=== PATIENT | female | born 1945 | race Caucasian/White ===

== ENCOUNTER 2024-06-28 12:13 | Inpatient (IN) ==
[2024-06-28 13:00] LABS: Albumin Level 3.7 gm/dl (3.4-5.0); Bilirubin,Total 0.4 mg/dl (0.2-1.0); Calcium 9.4 mg/dl (8.6-10.3); Potassium 4.3 mmol/L (3.5-5.1)
[2024-06-28 13:06] LABS: Albumin Globulin Ratio 1.2 (0.9-2); Creatinine Clr Calc Pharmacy 52.5 ml/min; Globulin 3.1 gm/dl (2.5-4.0); Total Protein 6.8 gm/dl (6.0-8.3)
[2024-06-28 13:18] LABS: Partial Thromboplastin Ratio 0.9; Partial Thromboplastin Time 24 Seconds (21-31); Prothrombin Time 10.4 Seconds (9.0-12.0)
--- NOTE | 2024-06-28 13:24 | XRay Report ---
XR chest 1V not portable CLINICAL HISTORY: Chest pain, nonspecific COMPARISON STUDY: Chest radiograph December 25, 2021. FINDINGS: Lung volumes are normal. Lungs are clear. There is no pneumothorax or pleural effusion. Car diomegaly is unchanged. Mediastinal contours are normal. There is no evidence for pulmonary edema. IMPRESSION: No acute cardiopulmonary findings. No change in appearance of the chest. ACT 112: Negative or not required by law. Electronically signed by: Cesar Land M.D. 06/28/2024 1:23 PM
[2024-06-28 13:27] LABS: D Dimer 1580 ug/L FEU (0-500); Troponin I High Sensitivity 1070.6 pg/ml (0-14)
[2024-06-28 13:29] LABS: Basophils # (auto) 0.03 K/uL (0.00-0.20); Basophils % (auto) 0.4 %; Eosinophils # (auto) 0.18 K/uL (0.00-0.50); Eosinophils % (auto) 2.7 %; Hematocrit (blood only) 43.1 % (37.0-47.0); Hemoglobin 14.4 g/dl (12.0-16.0); Immature Granulocytes # (auto) 0.02 K/uL (0.01-0.20); Immature Granulocytes % (auto) 0.3 %; Lymphocytes # (auto) 1.14 K/uL (1.20-3.40); Lymphocytes % (auto) 17.1 %; Mean Corpuscular Hemoglobin 30.8 pg (25.0-34.0); Mean Corpuscular Hgb Conc 33.4 g/dL (32.0-36.0); Mean Corpuscular Volume 92.3 fL (80.0-100.0); Mean Platelet Volume 9.5 fL (9.4-12.4); Monocytes # (auto) 0.27 K/uL (0.11-0.59); Neutrophils # (auto) 5.03 K/uL (1.40-6.50); Neutrophils % (auto) 75.5 %; Platelet Count 245 K/uL (130-400); RDW Coefficient of Variation 12.5 % (11.5-14.5); RDW Standard Deviation 42.3 fL (36.4-46.3); Red Blood Count 4.67 M/uL (4.20-5.40); White Blood Count 6.67 K/ul (4.8-10.8)
--- NOTE | 2024-06-28 13:32 | Emergency Department Note ---
Impression & Plan Acute non-ST elevation myocardial infarction (NSTEMI), Elevated troponin, Hypertensive urgency ED Provider Note NAME: PER RUEDA AGE: 78 SEX: F : 1945 ARRIVES VIA: Walk-In INFORMANT: Patient, Friend at bedside ED PROVIDER(S): Abiodun Porter MD CHIEF COMPLAINT: Chest pain, shortness of breath MEDICAL DECISION MAKING: Patient presented due to concern for chest pain and shortness of breath. I was notified by the charge nurse of her abnormal blood work and probably saw the patient that she had an elevated troponin and D-dimer. Upon evaluation no chest pain. The patient does have an elevated D-dimer of 1580 and troponin of 1000. No priors for comparison. LFTs unremarkable. BSG 111 but nonfasting and not DKA with normal white count H&H and platelet count. I did call charge nurse ordered promptly have the patient undergo CAT scan imaging of the chest. Patient was advised to hit her call mondragon if she developed any recurrence of chest pain. Patient did have recurrence of chest pain. Slight depressions in 1 and aVL patient was ordered aspirin and nitro along with 2 mg of IV morphine. Quick review of the patient CT angiography did not show any main lobar PE. Patient was ordered heparin bolus and drip. CT angiography negative pulmonary nodules noted. Inform the patient of these findings and may consider follow-up as an outpatient repeat CAT scan. I did speak with the on-call cardiology service who agreed with the plan of care. Subsequent reassessment the patient had improvement and resolution of her chest pain with treatment. I did speak with Dr. Cuevas and the patient was admitted to the medicine service. Critical Care: I have personally spent 45 minutes of critical care time in direct management of this patient. This includes bedside care, interpretation of diagnostic studies, and testing, discussion with consultants, patient, and family members, and other require inpatient management activities. This 45 minutes is in excess of all separately billable procedures. Discussion w/ other healthcare providers: Dr. Dumont cardiology Dr. Cuevas inpatient medicine service Prior /Outside records reviewed: None Differential diagnosis: Cardiac ischemia, aortic dissection, pulmonary embolism, pneumothorax, pneumonia, pericarditis, myocarditis, GERD, cholecystitis, pancreatitis, musculoskeletal, as well as other pathologies were considered. Diagnostics, as interpreted by me: ECG: Normal sinus rhythm, rate of 77, normal intervals, normal axis no ST elevations. Repeat EKG interpreted myself Normal sinus rhythm, rate of 82, normal intervals, normal axis no ST elevations, slight depressions in [address] aVL. No obvious ST elevations. Cardiac monitoring: An order was placed for continuous cardiac monitoring. The monitor shows a rate of 75 with sinus rhythm. Patient was placed on pulse oximetry Medical decision rules: Heart score, Wells score Imaging studies: I informally interpreted the patient's Chest x-ray does not show obvious pneumonia or pneumothorax with formal report to follow. HPI:Patient presents due to concern for chest pains. The patient states the chest pain has been ongoing since last week. She states that has been intermittent but was more constant over the weekend and is primarily exertional in nature. The patient describes it as a squeezing front and back like an elephant is on her chest. 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 Patient denies any recent travel or known sick contacts. No leg swelling or calf pain. Patient denies any prior history of heart disease. The patient states that she typically goes to some sort of fitness class twice a week and when she went on she typically has to park at the [employer] and walk up to the [employer] building and states that she had pain and shortness of breath at that time. Patient denies any falls or trauma. No upper or lower respiratory symptoms. Patient has no active chest pain at this time. Patient's chest pain is centralized front and back. Nonradiating. The patient denies any associated nausea vomiting or diaphoresis. PAST MEDICAL HISTORY: See Below PAST SURGICAL HISTORY: See Below SOCIAL HISTORY: See Below HOME MEDICATIONS: See Below ALLERGIES: See Below VITALS: See Below PHYSICAL EXAMINATION: GENERAL: NAD, non-toxic. EYE EXAM: Normal conjunctiva. PERRL, no anisocoria and EOM's grossly intact w/o pain. OROPHARYNX: Moist mucus membranes, grossly normal dentition. NECK: Trachea midline, no stridor. Supple, no nuchal rigidity, no adenopathy, non-tender. No signs of meningismus. FROM of the neck with good chin to chest and neck extension. LUNGS: Clear to auscultation. Normal chest wall mechanics. HEART: NSR, no MRG. ABDOMEN: Abdomen soft, non-tender, no masses, no rebound or guarding. BACK: No CVA TTP. SKIN: No rashes and no bruising. UPPER EXTREMITIES: Upper extremities are grossly normal. LOWER EXTREMITIES: Grossly normal, no edema. Negative Homans' sign bilaterally. NEURO EXAM: A&O x3, cranial nerves II-XII grossly intact, normal speech, moves all 4 extremities. Past Med/Surg History Problem List (Updated 06/28/24 @ 18:58 by Abiodun Porter MD) Acute non-ST elevation myocardial infarction (NSTEMI) (Acute) Hypertensive urgency (Acute) Unstable angina Elevated troponin (Acute) Social History Smoking Status: Never smoker Hx Alcohol Use: Yes Hx Substance Use: No Preferred Language: Marshallese Communication Ability: Effective Marketing Researcher Required: No Beliefs That Will Affect Care: None Current Living Situation: Alone Other Information That Helps Us Care for You: No Feels Safe at Home: Yes Safety Concerns: Feels Safe At This Time Assistive Devices: Denture - Upper, Denture - Lower and Glasses Allergies Allergies Allergy/AdvReac Type Severity Reaction Status Date / Time No Known Allergies Allergy Unverified 06/28/24 13:37 Home Meds Home Medications Medication Instructions Recorded Confirmed lisinopril 20 mg tablet 20 mg PO HS 06/28/24 06/28/24 Results & Data (ED) Vital Signs Vital Signs - 24 hr 06/28/24 12:20 06/28/24 13:34 06/28/24 14:14 Temperature 36.8 C Temperature Source Temporal Artery Scan Pulse Rate 89 76 Pulse Rate [Left Finger] 75 Respiratory Rate 20 16 Respiratory Effort / Characteristics Non-Labored Spontaneous Respiratory Depth Normal Blood Pressure 181/105 H Blood Pressure [Right Arm] 205/98 H Blood Pressure Mean 130 Blood Pressure Mean [Right Arm] 133 Pulse Oximetry 96 98 Oxygen Delivery Method Room Air Sepsis Recent Fever Within 48 Hours No Sepsis New/Unexplained Change in Mental Status No Sepsis Action Taken by Nursing No Action Required 06/28/24 14:30 Temperature Temperature Source Pulse Rate 75 Pulse Rate [Left Finger] Respiratory Rate 18 Respiratory Effort / Characteristics Respiratory Depth Blood Pressure 206/94 H Blood Pressure [Right Arm] Blood Pressure Mean 118 Blood Pressure Mean [Right Arm] Pulse Oximetry 92 Oxygen Delivery Method Sepsis Recent Fever Within 48 Hours Sepsis New/Unexplained Change in Mental Status Sepsis Action Taken by Usp Medications Current Medication List: was personally reviewed by me Laboratory Data Attestation: I reviewed the patient's lab results. 06/28/24 12:31 06/28/24 12:31 Lab Results 06/28/24 Range/Units 12:31 WBC 6.67 (4.8-10.8) K/ul RBC 4.67 (4.20-5.40) M/uL Hgb 14.4 (12.0-16.0) g/dl Hct 43.1 (37.0-47.0) % MCV 92.3 (80.0-100.0) fL MCH 30.8 (25.0-34.0) pg MCHC 33.4 (32.0-36.0) g/dL RDW Std Deviation 42.3 (36.4-46.3) fL RDW Coeff of Deirdre 12.5 (11.5-14.5) % Plt Count 245 (130-400) K/uL MPV 9.5 (9.4-12.4) fL Immature Gran % (Auto) 0.3 % Neut % (Auto) 75.5 % Lymph % (Auto) 17.1 % [place] % (Auto) 4.0 % Eos % (Auto) 2.7 % Baso % (Auto) 0.4 % Neut # (Auto) 5.03 (1.40-6.50) K/uL Lymph # (Auto) 1.14 L (1.20-3.40) K/uL [place] # (Auto) 0.27 (0.11-0.59) K/uL Eos # (Auto) 0.18 (0.00-0.50) K/uL Baso # (Auto) 0.03 (0.00-0.20) K/uL Immature Gran # (Auto) 0.02 (0.01-0.20) K/uL PT 10.4 (9.0-12.0) Seconds INR 1.0 (0.9-1.1) APTT 24 (21-31) Seconds PTT Ratio 0.9 D-Dimer 1580 H* (0-500) ug/L FEU Sodium 138 (136-145) mmol/L Potassium 4.3 (3.5-5.1) mmol/L Chloride 103 (98-107) mmol/L Carbon Dioxide 28 (21-32) mmol/L Anion Gap 7 (3-11) BUN 18 (6-23) mg/dl Creatinine 0.75 (0.6-1.2) mg/dl Est Cr Clr Drug Dosing 52.5 ml/min eGFR 80.93 BUN/Creatinine Ratio 24.0 H (10-20) Glucose 111 H (70-99(Fasting)) mg/dl Calcium 9.4 (8.6-10.3) mg/dl Total Bilirubin 0.4 (0.2-1.0) mg/dl AST 24 (13-39) U/L ALT 12 (7-52) U/L Alkaline Phosphatase 93 (34-104) U/L Troponin I High Sens 1070.6 H* (0-14) pg/ml Total Protein 6.8 (6.0-8.3) gm/dl Albumin 3.7 (3.4-5.0) gm/dl Globulin 3.1 (2.5-4.0) gm/dl Albumin/Globulin Ratio 1.2 (0.9-2) Administered Medications Heparin Sodium/Dextrose (Heparin Sodium/Dextrose) 25,000 units in 500 mls @ 14 mls/hr IV .Q24H FOR[facility], 1928–1983; Protocol Stop: 07/28/24 14:29 Last Admin: 06/28/24 14:28 Dose: 700 units/hr, 14 mls/hr Documented By: KRISTY Co-signed By: RAVI Metoprolol Succinate (Metoprolol Succ 25mg Ext Rel Tab) 25 mg PO QAM CAM[place] Stop: 07/28/24 15:59 Last Admin: 06/28/24 16:38 Dose: 25 mg Documented By: KRISTY Nitroglycerin (Nitroglycerin 2% Ointment 30gm Tube) 0.5 inch EXT Q6H [place] Stop: 07/28/24 15:29 Last Admin: 06/28/24 15:55 Dose: 0.5 inch Documented By: KRISTY Discontinued Medications Aspirin (Aspirin Chew 324 Mg) 324 mg PO NOW STA Stop: 06/28/24 13:59 Last Admin: 06/28/24 14:05 Dose: 324 mg Documented By: KRISTY Heparin Sodium (Porcine) (Heparin Sod (Porcine) 1000 Unit/Ml) 3,000 units IV NOW ONE Stop: 06/28/24 14:31 Last Admin: 06/28/24 14:28 Dose: 3,000 units Documented By: RKISTY Co-signed By: RAVI Heparin Sodium/Dextrose (Heparin Iv Adult Wt-Based Low-Dose W/ Initial Bolus Protocol) 1 each IV NOW STA; Protocol Stop: 06/28/24 14:02 Last Admin: 06/28/24 14:30 Dose: Not Given Documented By: RAVI Ioversol (Optiray 320 125ml) 112 ml IV ONCE ONE Stop: 06/28/24 13:44 Last Admin: 06/28/24 13:43 Dose: 112 ml Documented By: VLADIMIR Morphine Sulfate (Morphine Sulfate 2 Mg/Ml Carp) 2 mg IV NOW STA Stop: 06/28/24 13:59 Last Admin: 06/28/24 14:30 Dose: Not Given Documented By: RAVI Nitroglycerin (Nitroglycerin Sl 0.4 Mg/Tab Tab) 0.4 mg SL NOW STA Stop: 06/28/24 13:59 Last Admin: 06/28/24 14:07 Dose: 0.4 mg Documented By: KRISTY Nitroglycerin (Nitroglycerin 2% Ointment 30gm Tube) Confirm Administered Dose 18 inch EXT .STK-MED ONE Stop: 06/28/24 15:36 Last Admin: 06/28/24 16:12 Dose: Not Given Documented By: KRISTY Imaging Data Radiologist's Impression: Chest X-Ray 06/28/24 12:25 XR chest 1V not portable CLINICAL HISTORY: Chest pain, nonspecific COMPARISON STUDY: Chest radiograph December 25, 2021. FINDINGS: Lung volumes are normal. Lungs are clear. There is no pneumothorax or pleural effusion. Cardiomegaly is unchanged. Mediastinal contours are normal. There is no evidence for pulmonary edema. IMPRESSION: No acute cardiopulmonary findings. No change in appearance of the chest. ACT 112: Negative or not required by law. Electronically signed by: Cesar Land M.D. 06/28/2024 1:23 PM Chest CTA 06/28/24 13:31 CT angio chest PE protocol CLINICAL HISTORY: PE TECHNIQUE: Multidetector row helical CT of the chest was performed with angiographic protocol. Coronal and sagittal reformations were obtained. Coronal and sagittal MIPS were obtained from the axial data set and were submitted for review. Automated dose lowering techniques and/or adjustment according to patient size were utilized for this exam. CT DOSE: 540.83 mGy.cm Comparison: Comparison is made to chest radiograph 06/28/2024 FINDINGS: Lungs and pleura: Bronchial wall thickening is seen. Calcified granulomata are seen. There were a few small pulmonary nodules including the followin mm nodule in the left lower lobe (series 4 image 65) 3 mm nodule right lower lobe (image 74) 3 mm nodule in the left lower lobe (image 162). Heart and pericardium: Cardiomegaly is seen with biatrial enlargement. Vessels: Moderate atherosclerotic changes in the aorta and coronary arteries. Mediastinum and aria: Unremarkable. Chest wall and lower neck: Unremarkable. Abdomen: Unremarkable. Bones: Degenerative changes in the thoracic spine. IMPRESSION: 1. No evidence of pulmonary embolus. 2. Bronchial wall thickening may represent infectious/inflammatory airways disease. 3. Small pulmonary nodules as above. According to Fleischner criteria, no follow-up is required in low risk patients, in high-risk patients, a 12 month follow-up CT can be optionally performed. ACT 112: Negative or not required by law. Electronically signed by: Forest Mccollum M.D. 06/28/2024 2:01 PM Discharge Plan Visit Data Chief Complaint: Shortness of Breath/Dyspnea Stated Complaint: SOB, CHEST PAINS ED Provider: Abiodun Porter Discharge Problem: Acute non-ST elevation myocardial infarction (NSTEMI), Elevated troponin, Hypertensive urgency Patient Disposition: Admitted As Inpatient Discharge Instructions Interventions: ED Discharge Assessment Last Done: 06/28/24 16:50
[2024-06-28] MEDS: OPTIRAY 320 125ml IV ONE (13:43)
--- NOTE | 2024-06-28 14:03 | CT Scan Report ---
CT angio chest PE protocol CLINICAL HISTORY: PE TECHNIQUE: Multidetector row helical CT of the chest was performed with angiographic protocol. Albarado l and sagittal reformations were obtained. Coronal and sagittal MIPS were obtained from the axial fiordaliza a set and were submitted for review. Automated dose lowering techniques and/or adjustment according to patient size were utilized for this exam. CT DOSE: 540.83 mGy.cm Comparison: Comparison is made to chest radiograph 06/28/2024 FINDINGS: Lungs and pleura: Bronchial wall thickening is seen. Calcified granulomata are seen. There were a few small pulmonary nodules including the followin mm nodule in the left lower lobe (series 4 image 65) 3 mm nodule right lower lobe (image 74) 3 mm nodule in the left lower lobe (image 162). Heart and pericardium: Cardiomegaly is seen with biatrial enlargement. Vessels: Moderate atherosclerotic changes in the aorta and coronary arteries. Mediastinum and aria: Unremarkable. Chest wall and lower neck: Unremarkable. Abdomen: Unremarkable. Bones: Degenerative changes in the thoracic spine. IMPRESSION: 1. No evidence of pulmonary embolus. 2. Bronchial wall thickening may represent infectious/inflammatory airways disease. 3. Small pulmonary nodules as above. According to Fleischner criteria, no follow-up is required in l ow risk patients, in high-risk patients, a 12 month follow-up CT can be optionally performed. ACT 112: Negative or not required by law. Electronically signed by: Forest Mccollum M.D. 06/28/2024 2:01 PM
[2024-06-28] MEDS: ASPIRIN CHEW 324 MG PO STA (14:05)
[2024-06-28] MEDS: NITROGLYCERIN SL 0.4 MG/TAB TAB SL STA (14:07)
--- NOTE | 2024-06-28 14:12 | History & Physical Report ---
Date of Service June 28, 2024 Assessment & Plan (1) Unstable angina: Plan: 78-year-old female PMHx DVT (at age 19), on lisinopril daily. - Admit PCU - EKG at admission- NSR, 77 bpm, no ST elevation, ? ST depression leads 1 + aVL; pending official read - Troponin 1070.6 -> 1442.9, pending repeat x 3 - CBC grossly WNL, CMP grossly WNL with exception of elevated glucose 111, PT/INR WNL - Pending lipids, A1c - D-dimer 1580 - CTA: no evidence of PE, acute wall thickening may be infectious/inflammatory, small pulmonary nodules (+/- requiring 12-month follow-up CT; no h/o smoking) - CXR: no acute cardiopulmonary findings - Echo pending - ASA chew 325 mg given in ED; continue ASA 81mg po daily - SL NTG 0.4mg as needed chest pain - Continue NTG paste - Heparin started in ED; continue heparin - KEYANNA risk score 3 - Cardiology consulted; catheterization planned for 06/29 Appreciate cardiology recs and input Plan Lung nodules found on CTA- 5 mm and 3 mm nodule LLL, 3 mm nodule RLL; no h/o smoking; no follow-up if low risk, 12-month follow-up CT if high risk according to Fleischner criteria. Dispo: Admit VTE prophylaxis: Heparin started Code: Full Admission and Anticipated Discharge Date Admission Date: 06/28/2024 History of Present Illness Chief Complaint: SOB, chest pain, elevated troponin Primary Care Provider: Kristi Garvey DO Patient is a 78-year-old female who presented to ED for ongoing SOB and chest pain. BP at admission 205/98, HR 76. ED course: CBC WNL; BMP with glucose 111 otherwise grossly WNL; troponin 1070.6; D-dimer 1580; CXR no acute process; CTA no evidence of PE, bronchial thickening may be infectious or inflammatory, small pulmonary nodules noted. EKG with HR 77, NSR, no ST elevation. Patient had episode of chest pain while in ED and while getting CT scan; provided with ASA 132 minutes, NTG 0.4 mg, and heparin drip started. 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 Presented for chest pain has been coming and going since 06/24, described as "elephant sitting on chest and back" without radiation to arm or neck. Rates the pain a 2-3/10 on the pain scale normally, with a 5/10 at its maximum. Reports additional shortness of breath that has been ongoing x weeks, and has not changed in quality, no cough. Denies nausea/vomiting, diaphoresis, WHITAKER, orthopnea, abdominal pain, lightheadedness, dizziness, headache. Additionally denies diarrhea/constipation, fever/chills. Patient did take her a.m. medications this morning. Please see Dr. Cuevas's attestation for changes/additions to treatment plan. Allergies Allergy/AdvReac Type Severity Reaction Status Date / Time No Known Allergies Allergy Unverified 06/28/24 13:37 Home Medications Medication Instructions Recorded Confirmed Type lisinopril 20 mg tablet 20 mg PO HS 06/28/24 06/28/24 History Past Med/Surg History Problem List (Updated 06/28/24 @ 15:27 by Malka Campos PA-C) Unstable angina Elevated troponin Social History Smoking Status: Never smoker Feels Safe at Home: Yes Review of Systems Review of Systems: All systems reviewed & are unremarkable except as noted in Subjective Physical Exam Physical Exam: General: No acute distress, well developed. Skin: Warm and dry, without rashes or lesions. No cyanosis or clubbing Head: Normocephalic, atraumatic Eyes: PERRL, conjunctivae clear, sclera non-icteric; EOM intact ENT: External ear and ear canal without swelling; nose atraumatic Neck: Supple, no LAD; no JVD Cardio: RRR, no M/G/R, S1 and S2 normal Resp: Chest wall symmetric, normal respiratory effort; No respiratory distress, Lungs CTA in all lobes bilaterally, no wheezes, rales, or rhonchi Abdomen: Soft, symmetric, nontender; No masses or hepatosplenomegaly MSK: No deformities, strength equal and symmetric, full ROM throughout; Pulses palpable and equal; No edema. Neuro: Awake, alert; Muscle strength 5/5 bilaterally in UE/LE; Sensation intact bilaterally; CN intact Psych: Appropriate mood and affect; good judgement and insight. Results & Data Results & Data Vital Signs (Past 12 Hours) Vital Signs Temp Pulse Pulse Resp BP BP Pulse Ox 06/28/24 13:34 75 16 205/98 H 98 06/28/24 12:20 36.8 C 89 20 181/105 H 96 O2 Del Method 06/28/24 13:34 06/28/24 12:20 Room Air Laboratory Results 06/28/24 12:31 WBC 6.67 RBC 4.67 Hgb 14.4 Hct 43.1 MCV 92.3 MCH 30.8 MCHC 33.4 RDW Std Deviation 42.3 RDW Coeff of Deirdre 12.5 Plt Count 245 MPV 9.5 Immature Gran % (Auto) 0.3 Neut % (Auto) 75.5 Lymph % (Auto) 17.1 Osborne % (Auto) 4.0 Eos % (Auto) 2.7 Baso % (Auto) 0.4 Neut # (Auto) 5.03 Lymph # (Auto) 1.14 L Osborne # (Auto) 0.27 Eos # (Auto) 0.18 Baso # (Auto) 0.03 Immature Gran # (Auto) 0.02 PT 10.4 INR 1.0 APTT 24 PTT Ratio 0.9 D-Dimer 1580 H* Sodium 138 Potassium 4.3 Chloride 103 Carbon Dioxide 28 Anion Gap 7 BUN 18 Creatinine 0.75 Est Cr Clr Drug Dosing 52.5 eGFR 80.93 BUN/Creatinine Ratio 24.0 H Glucose 111 H Calcium 9.4 Total Bilirubin 0.4 AST 24 ALT 12 Alkaline Phosphatase 93 Troponin I High Sens 1070.6 H* Total Protein 6.8 Albumin 3.7 Globulin 3.1 Albumin/Globulin Ratio 1.2 Diagnostic Findings Chest X-Ray 06/28/24 12:25 XR chest 1V not portable CLINICAL HISTORY: Chest pain, nonspecific COMPARISON STUDY: Chest radiograph December 25, 2021. FINDINGS: Lung volumes are normal. Lungs are clear. There is no pneumothorax or pleural effusion. Cardiomegaly is unchanged. Mediastinal contours are normal. There is no evidence for pulmonary edema. IMPRESSION: No acute cardiopulmonary findings. No change in appearance of the chest. ACT 112: Negative or not required by law. Electronically signed by: Cesar Land M.D. 06/28/2024 1:23 PM Chest CTA 06/28/24 13:31 CT angio chest PE protocol CLINICAL HISTORY: PE TECHNIQUE: Multidetector row helical CT of the chest was performed with angiographic protocol. Coronal and sagittal reformations were obtained. Coronal and sagittal MIPS were obtained from the axial data set and were submitted for review. Automated dose lowering techniques and/or adjustment according to patient size were utilized for this exam. CT DOSE: 540.83 mGy.cm Comparison: Comparison is made to chest radiograph 06/28/2024 FINDINGS: Lungs and pleura: Bronchial wall thickening is seen. Calcified granulomata are seen. There were a few small pulmonary nodules including the followin mm nodule in the left lower lobe (series 4 image 65) 3 mm nodule right lower lobe (image 74) 3 mm nodule in the left lower lobe (image 162). Heart and pericardium: Cardiomegaly is seen with biatrial enlargement. Vessels: Moderate atherosclerotic changes in the aorta and coronary arteries. Mediastinum and aria: Unremarkable. Chest wall and lower neck: Unremarkable. Abdomen: Unremarkable. Bones: Degenerative changes in the thoracic spine. IMPRESSION: 1. No evidence of pulmonary embolus. 2. Bronchial wall thickening may represent infectious/inflammatory airways disease. 3. Small pulmonary nodules as above. According to Fleischner criteria, no follow-up is required in low risk patients, in high-risk patients, a 12 month follow-up CT can be optionally performed. ACT 112: Negative or not required by law. Electronically signed by: Forest Mccollum M.D. 06/28/2024 2:01 PM ECG Additional Comments: NSR, possible LAE, HR 77, FL 122, QRS 82, QT/QTc 368/416 Code Status & VTE Plan Code Status Full Supervising Physician Co-Signing Physician Notes Patient seen and examined, chart reviewed, case discussed with Malka Campos PA-C and I agree with the assessment and plan as above except as otherwise noted Labs and images reviewed 78yo F who with chest pain 2-3 worsening chest pain/pressure progressing over the last week. Presents with elevated trop, EKG without territorial ST change sbut ?lateral changes on repeat. Chest pain free on admission evaluation, s/p aspirin, nitro. Heparin gtt pending. Bp recheck with SBP improvement to 170s. Kathie is seen at the bedside. She reports that her chest pain seems to come in waves on slow and off slow and is not affected by exercise or exertion to her knowledge. Seems to have occurred both at rest and while walking. She reports each wave of discomfort seems to last a couple of hours. She has not had orthopnea sweating or shortness of breath. No leg swelling. She has a prior history of DVT many years ago and has been on intermittent prophylactic anticoagulation during her pregnancies otherwise is not typically on anticoagulation and has had no recurrent clots in several decades. She does not use tobacco products. Rare social alcohol use none in the last several days. Denies medication allergies. She did take her lisinopril this morning. Denies history of diabetes, hyperlipidemia. Lungs are clear. Heart rate is regular. Unstable crescendo angina, NSTEMI -EKG without territorial ST segment changes greater than 1 mm, some slight depression in lead I and T wave from upright to slightly sinusoidal in aVL Troponin elevated at thousand, repeat pending Heparinized. Cardiology consulted. Anticipate catheterization 06/29. Patient pain-free at bedside. Remains hypertensive although with transient improvement around nitro. Nitro paste added. Echo pending Agree with continuation of aspirin daily. Further recommendations based on ongoing ischemic ev Lipid panel, A1c pending Agree with above. PG Care Time/CCT Total # of Minutes Spent Total Time Spent with Patient: Total time spent is greater than 50% in coordination of care (as documented) at patient's floor/unit and/or counseling patient: Coding Level of Care Code 08179 INT INP/OBS CARE 3/75MIN Diagnoses Unstable angina I20.0 Time Spent (min) 80
[2024-06-28] MEDS ORDERED: HEPARIN SOD (PORCINE) 1000 UNIT/ML IV ONE (14:16)
[2024-06-28] MEDS: HEPARIN SOD (PORCINE) 1000 UNIT/ML IV ONE (14:28)
[2024-06-28] MEDS: HEPARIN SODIUM/DEXTROSE 25,000 UNITS/500 ML BAG IV SCH (14:28)
[2024-06-28] MEDS: MoRPHine SULFATE 2 MG/ML CARP IV STA (14:30)
[2024-06-28] MEDS: Heparin IV Adult Wt-Based Low-Dose w/ INITIAL Bolus Protocol IV STA (14:30)
--- NOTE | 2024-06-28 15:46 | Cardiology Consultation ---
Date of Consultation June 28, 2024 Assessment & Plan (1) Elevated troponin: Likely represents a type I NSTEMI, however type II is not excluded at this point. We will obtain an echocardiogram to evaluate for regional wall motion abnormalities, abnormality in EF, or evidence of pericardial effusion. Also need to evaluate the RV for enlargement or evidence of strain. If this is not an ACS then would anticipate normal findings in those areas, or global hypokinesis more suggestive of viral cardiomyopathy, Takotsubo, etc. Patient also had very elevated blood pressure with alone can cause elevation in troponin and chest pain. Further recommendations pending results of her echocardiogram. Suspect she will need to undergo coronary angiography plus or minus PCI regardless in order to exclude coronary artery disease. In addition to blood pressure control I would empirically start her on guideline directed medical therapy for secondary prevention. Aspirin 81 mg daily, check lipids and add statin, continue her lisinopril and added beta-alba if her heart rate will tolerate. (2) Hypertensive urgency: Blood pressure was very elevated and still remains elevated well above target. In addition to the lisinopril she is on Nitropaste. She likely would tolerate a low-dose of beta-alba although her heart rate may preclude higher doses. History of Present Illness Reason for Consultation: Chest pain History of Present Illness 78-year-old female without prior cardiac history presented to the hospital after experiencing chest pain since Friday evening. In the emergency department she is found to have very elevated blood pressure and an elevated D-dimer in addition to troponin. Currently, the patient has no ongoing chest discomfort. She admits that she has actually been having chest discomfort and shortness of breath on exertion for a long time. In fact, more than 10 years ago she was having some symptoms which were predominantly dyspnea on exertion. She was undergoing workup and her physician was concerned that her symptoms were cardiac. She declined further cardiac workup at that time. She subsequently moved to [place] where she noticed worsening dyspnea on exertion and some chest discomfort. Eventually she decided that she could not tolerate the altitude and moved to [place] about 3 years ago. She has noted over the last few months that she has been having "an elephant on my chest and back" when exerting herself with shortness of breath. She takes a class on the [facility] and walking up the hill to the [facility] has become very difficult for her because of the symptoms. Over the weekend she developed less severe but persistent chest discomfort and when she called her primary care provider this morning they suggest that she go to the emergency department. She also told me that she had DVT when she was in her 20s or 30s. She did have a CT angiography of the chest today which did not dem onstrate significant pulmonary embolism. Patient denies any syncope, near syncope, orthopnea, PND, racing heartbeat, palpitations, or edema. She is accompanied by a friend today. She voices no other complaints or concerns at this time. Allergies Allergy/AdvReac Type Severity Reaction Status Date / Time Sulfa (Sulfonamide Allergy Mild Abdominal Unverified 06/29/24 12:28 Antibiotics) Pain Home Medications Medication Instructions Recorded Confirmed Type lisinopril 20 mg tablet 20 mg PO HS 06/28/24 06/28/24 History Patient History Social History Smoking Status: Never smoker Hx Alcohol Use: Yes Hx Substance Use: No Preferred Language: French Communication Ability: Effective Mapping Technician Required: No Beliefs That Will Affect Care: None Current Living Situation: Alone Other Information That Helps Us Care for You: No Feels Safe at Home: Yes Safety Concerns: Feels Safe At This Time Assistive Devices: None Review of Systems Review of Systems: Negative except as per HPI Physical Exam Constitutional: WD/WN, vitals as above (Elderly. No acute distress.) Eyes: Extraocular muscles intact. Sclera are anicteric. Oral mucosa is dry. Neck: No JVD. Respiratory: Clear to auscultation bilaterally. No wheezing, rhonchi, or rales. Cardiovascular: Regular rate and rhythm. S4 gallop. No rubs or murmurs. No edema. Musculoskeletal: no cyanosis or clubbing, extremities motor strength 5/5 Neurologic: Cognition is intact. Speech is fluent. No focal deficits. No tremor. Psychiatric: A+Ox3, euthymic affect Results & Data Vital Signs (Past 12 Hours) Vital Signs Temp Pulse Pulse Resp BP BP Pulse Ox 06/28/24 15:00 69 24 211/101 H 94 06/28/24 14:30 75 18 206/94 H 92 06/28/24 14:14 76 06/28/24 13:34 75 16 205/98 H 98 06/28/24 12:20 36.8 C 89 20 181/105 H 96 O2 Del Method 06/28/24 15:00 06/28/24 14:30 06/28/24 14:14 06/28/24 13:34 06/28/24 12:20 Room Air PG Care Time/CCT Total # of Minutes Spent Total Time Spent with Patient: Total time spent is greater than 50% in coordination of care (as documented) at patient's floor/unit and/or counseling patient: Coding Level of Care Code 35735 IN/OBS CONSULT LVL 4,60M Diagnoses Elevated troponin R79.89 Hypertensive urgency I16.0
[2024-06-28] MEDS: NITROGLYCERIN 2% OINTMENT 30GM TUBE EXT SCH (15:55)
[2024-06-28] MEDS: NITROGLYCERIN 2% OINTMENT 30GM TUBE EXT ONE (16:12)
[2024-06-28] MEDS: METOPROLOL SUCC 25MG EXT REL TAB PO SCH (16:38)
--- NOTE | 2024-06-28 17:20 | Electrocardiogram Report ---
Test Reason : Blood Pressure : */* mmHG Vent. Rate : 77 BPM Atrial Rate : 77 BPM P-R Int : 122 ms QRS Dur : 82 ms QT Int : 368 ms P-R-T Axes : 48 53 41 degrees QTcB Int : 416 ms Normal sinus rhythm Possible Left atrial enlargement Borderline ECG No previous ECGs available Confirmed by Michel Dumont [id number]) on 06/28/2024 5:20:21 PM Referred By: REFERRED SELF Confirmed By: Michel Dumont
--- NOTE | 2024-06-28 17:31 | XCELERA ---
[id number]
--- OUTSIDE RECORDS SUMMARY | 2024-06-28 19:04 | External Medical Summary | Continuity of Care Document ---
Author Name Unknown Organization [address] Address [address] [place] [address] [phone] Care Team Providers Care Storage Wharfage Clerk Name Role Phone Kristi Mars Primary Care P hysicitracey [phone] Encounter [facility] [id number] Date(s): 03/18/24 - 03/18/[address], [facility] [address] [place] [address] [place] [phone] Encounter Diagnosis Body mass index [BMI] 26.0-26.9, adult(Discharge Diagnosis) - 03/18/24 Hyperlipidemia(Discharge Diagnosis) - 03/18/24 Discharge Disposition: Home or Self Care Attending Physician: Alec Garvey DO, Mariana Annette Referring Physician: Alec Garvey DO, Mariana Annette Allergies, Adverse Reactions, Alerts Substance Criticality Severity Reaction Reaction Severity Status sulfa drugs Unable to assess criticality Mild Nausea Active Assessment and Plan Extracted from: Title:Office Visit Note Author:Alec Garvey DO, Mariana Annette Date:03/18/24 1.Hyperlipidemia STATUS:Chronic stable. DATA:Labs reviewed. GOAL:Maintain stability. PLAN:Pt declines tx with statin, she is aware of her risks of VA and stroke. . Immunizations Given and Recorded Vaccine Date Status Refusal Reason influenza virus vaccine, inactivated 06/06/23 Give n influenza virus vaccine, inactivated 1 08/30/22 Gi marni influenza virus vaccine, inactivated 05/30/21 Ibrahima rded SARS-CoV-2 (COVID-19) mRNA BNT-162b2 vax 2 05/30/21 Recorded SARS-CoV-2 (COVID-19) mRNA BNT-162b2 vax 11/03/20 Recorded SARS-CoV-2 (COVID-19) mRNA BNT-162b2 vax 10/13/20 Recorded tetanus/diphtheria/pertuss, acel (Tdap) 03/01/18 R ecorded pneumococcal 23-valent vaccine 06/01/16 Recorded pneumococcal 13-valent vaccine 06/26/15 Recorded zoster vaccine, inactivated 05/13/12 Recorded 1Result Comment: Ashley Escobar LPN 2Result Comment: 2021-07-17: Historical information-source unspecified Medications cannabidiol Start: 06/06/23 11:20:00 AM EDT Start Date: 06/06/23 Status: Ordered Co-Q10 100 mg oral capsule Start: 07/17/21 2:17:00 PM EST, 1 cap, PO, Daily Start Date: 07/17/21 Status: Ordered diclofenac 1% topical gel Start: 10/27/23 4:50:00 PM EST, 1 appl, topical, qid, Disp# 100 g, Refills: 0, PRN: Pain, Pharmacy: [facility]/pharmacy #[id number] Start Date: 10/27/23 Status: Ordered Echinacea oral tablet Start: 07/17/21 2:12:00 PM EST, 1 tab, PO, Daily, PRN: cold symptoms Start Date: 07/17/21 Status: Ordered Fish Oil 1200 mg oral capsule Start: 07/17/21 2:17:00 PM EST, 1 cap, PO, Daily Start Date: 07/17/21 Status: Ordered Hair, Skin & Nails Start: 07/17/21 2:09:00 PM EST, 1 tab, PO, Daily Start Date: 07/17/21 Status: Ordered Flora-42 topical cream Start: 07/17/21 2:08:00 PM EST Start Date: 07/17/21 Status: Ordered lisinopril 20 mg oral tablet Start: 09/11/23 5:24:00 PM EST, 2 tab, PO, Daily, Disp# 180 tab, Refills: 3, Pharmacy: [facility]/pharmacy #[id number] Start Date: 09/11/23 Status: Ordered methylphenidate 10 mg oral tablet Start: 03/11/24 5:23:00 PM EDT, 1 tab, PO, bid, Disp# 60 tab, Refills: 0, Note to Pharmacy: will need to discuss taper at subsequent visit - renewed as provided by previous PCP for now, Pharmacy: [facility]/pharmacy #[id number] Start Date: 03/11/24 Stop Date: 04/10/24 Status: Ordered methylphenidate 36 mg/24 hr oral tablet, extended release Start: 03/11/24 5:23:00 PM EDT, 1 tab, PO, qAM, Disp# 30 tab, Refills: 0, Note to Pharmacy: dose reduction per taper discussed 01/2023 visit, Pharmacy: [facility]/pharmacy #[id number] Start Date: 03/11/24 Stop Date: 04/10/24 Status: Ordered montelukast 10 mg oral tablet Start: 03/17/23 9:53:00 AM EDT, See Instructions, Disp# 90 tab, Refills: 3, TAKE 1 TABLET BY MOUTH EVERY DAY, Pharmacy: [facility]/pharmacy #[id number] Start Date: 03/17/23 Status: Ordered Osteo Bi-Flex Triple Strength Start: 07/17/21 2:11:00 PM EST, 1 tab, PO, bid Start Date: 07/17/21 Status: Ordered Premarin 0.625 mg/g vaginal cream with applicator Start: 02/13/23 8:19:00 AM EDT, 1 g =, vaginal, qTueFri, Disp# 30 g, Refills: 0, Pharmacy: [facility]/pharmacy #[id number] Start Date: 02/13/23 Status: Ordered ProAir HFA 90 mcg/inh inhalation aerosol Start: 07/17/21 2:06:00 PM EST, 2 puff, inhaled, qid, PRN: as needed for wheezing Start Date: 07/17/21 Status: Ordered Vitamin B Complex Start: 07/17/21 2:10:00 PM EST, 1 tab, PO, Daily Start Date: 07/17/21 Status: Ordered Vitamin D3 2000 intl units (50 mcg) oral tablet Start: 07/17/21 2:10:00 PM EST, 1 tab, PO, Daily Start Date: 07/17/21 Status: Ordered Mental Status 03/18/24 Barriers to Learning one year None evide nt Mandatory Health Literacy Documentation Yes Health Literacy Communication Barriers N ever Primary Language Sri [place]ank[place] Problem List Condition Confirmation Course Effective Dates Status H ealth Status Informant Adhesive capsulitis of left shoulder Confirmed Active Asthma Confirmed Active ADHD Confirmed Active ADD (attention deficit disorder) Confirmed Active Controlled substance agreement signed Confirmed Active Family history of pancreatic cancer 1 Confirmed Active History of hyperlipidemia Confirmed Active History of DVT in adulthood Confirmed Active HTN (hypertension) Confirmed Active Pelvic floor dysfunction Confirmed Active 1father, brother Diagnosis Diagnosis Type Effective Dates Health Status Clinical Service Informant Body mass index [BMI] 26.0-26.9, adult Discharge Diagnosis 03/18/24 Non-Specified Hyperlipidemia Discharge Diagnosis 03/18/24 Non-Specified Procedures Procedure Date Related Diagnosis Body Site Status Simple dental extraction 1 Completed 1all her teeth Vital Signs Most recent to oldest [Reference Range]: 1 Height 161.0 cm (03/18/24 1:25 PM) Patient Weight 68.3 kg (03/18/24 1:25 PM) Body Mass Index 26.35 kg/m2 (03/18/24 1:25 PM) Temperature [36.5-37.9 DegC] 36.9 DegC (03/18/24 1:25 PM) Blood Pressure 164/104mmHg (03/18/24 1:25 PM) Cuff Pulse Pressure 60 mmHg (03/18/24 1:25 PM) Social History Social History Type Response Smoking Status Never smoked cigaret beto Sex FCM Outpt Note * Alec Garvey DO, Mariana Annette: PERFORM, MODIFY Event Display: FCM Outpt Note Authored Date: [id number] Chief Complaint Discuss labs. History of Present Illness Presents to discuss labs Discussed lipid panel with LDL of 230 Patient declines statin medication for HLD she tried a statin years ago, she stopped as she entered a clinical trial for DASH diet. She endorses myalgias with statin. denies hx ofheart disease states she does not have a family hx ofCAD/VA. Endorses FHx of lewy body dementia, stroke in her mother at age 89. She had a myocardial perfusion study in 2012 that showed low likelihood if CAD Physical Exam Vitals & Measurements T:36.9C BP:164/104 SpO2:99% HT:161.0cm WT:68.3kg WT:68.300kg(Dosing) BMI:26.35 PHQ2 Data(Data Documented on:03/18/2024 13:24) Emotional health assessment NEGATIVE General: _Alert and oriented, No acute distress Respiratory: _ Respirations are non-labored Psych: Mood-affect congruence. Reports no SI/HI. Speech is of normal pace and content Assessment/Plan 1.Hyperlipidemia STATUS:Chronic stable. DATA:Labs reviewed. GOAL:Maintain stability. PLAN:Pt declines tx with statin, she is aware of her risks of VA and stroke. . Attestation Time spent: Pre-visit plannin Kmrx-[id number]-yfra visit: _20 Post-visit (orders/documentation/coordination of care):5 Total visit time: 30 Problem List/Past Medical History Ongoing ADD (attention deficit disorder) ADHD Adhesive capsulitis of left shoulder Asthma Controlled substance agreement signed Family history of pancreatic cancer History of DVT in adulthood History of hyperlipidemia HTN (hypertension) Pelvic floor dysfunction Procedure/Surgical History Simple dental extraction Medications albuterol(ProAir HFA 90 mcg/inh inhalation aerosol), 2 puff, inhaled, qid, PRN biotin(Hair, Skin & Nails), 1 tab, PO, Daily cannabidiol cholecalciferol(Vitamin D3 2000 intl units (50 mcg) oral tablet), 50 mcg= 1 tab, PO, Daily chondroitin-glucosamine(Osteo Bi-Flex Triple Strength), 1 tab, PO, bid conjugated estrogens topical(Premarin 0.625 mg/g vaginal cream with applicator), 1 g, vaginal, qTueFri diclofenac topical(diclofenac 1% topical gel), 1 appl, topical, qid, PRN echinacea(Echinacea oral tablet), 1 tab, PO, Daily, PRN lisinopril(lisinopril 20 mg oral tablet), 40 mg= 2 tab, PO, Daily, 3 refills methylphenidate(methylphenidate 10 mg oral tablet), 10 mg= 1 tab, PO, bid methylphenidate(methylphenidate 36 mg/24 hr oral tablet, extended release), 36 mg= 1 tab, PO, qAM montelukast(montelukast 10 mg oral tablet), See Instructions, 3 refills multivitamin(Vitamin B Complex), 1 tab, PO, Daily omega-3 polyunsaturated fatty acids(Fish Oil 1200 mg oral capsule), 1200 mg= 1 cap, PO, Daily ubiquinone(Co-Q10 100 mg oral capsule), 100 mg= 1 cap, PO, Daily urea topical(Flora-42 topical cream) Allergies sulfa drugs (Mild)Nausea Social History Smoking Status Never smoked cigarettes Alcohol Use:Current Type:1-2 hard ciders daily Frequency:Daily Average drinks per episode in last year:2 Employment/School Status:Employed Description:[employer] Mother Home/Environment Lives with:Fraternity brothers Sexual - No Risk Substance Abuse - Low Risk Tobacco - No Risk Family History Health Status Family Member(s) Family Member(s) Relationship: Mother, Age: Unknown, Cause: Lewy Body Dementia Relationship: Father, Age: Unknown, Cause: Pancreatic Cancer Relationship: Brother, Age: Unknown, Cause: Pancreatic cancer Immunizations Vaccine Date Status influenza virus vaccine, inactivated 06/06/2023 Given influenza virus vaccine, inactivated 08/30/2022 Given Comments : Ashley Escobar LPN influenza virus vaccine, inactivated 05/30/2021 Recorded SARS-CoV-2 (COVID-19) mRNA BNT-162b2 vax 05/30/2021 Recorded Comments : 2021-07-17: Historical information-source unspecified SARS-CoV-2 (COVID-19) mRNA BNT-162b2 vax 11/03/2020 Recorded SARS-CoV-2 (COVID-19) mRNA BNT-162b2 vax 10/13/2020 Recorded tetanus/diphtheria/pertuss, acel (Tdap) 03/01/2018 Recorded pneumococcal 23-valent vaccine 06/01/2016 Recorded pneumococcal 13-valent vaccine 06/26/2015 Recorded Recommendations Health Maintenance Pending(in the next year) Due Adult Influenza Vaccine due02/29/24and every 1year Adult COVID-19 Vaccination due03/18/24Unknown Frequency Adult Social Determinants of Health Screening due03/18/24Unknown Frequency Medicare Annual Wellness Visit due03/18/24and every 1year Shingles Vaccine due03/18/24One-time only Satisfied(in the past 1 year) Satisfied Adult Influenza Vaccine on06/06/23.Satisfied by SHOSHANA Salter Gillian Body Mass Index on03/18/24.Satisfied by MARTÍNEZ Trammell Lori Lipid Screening on03/11/24.Satisfied by [employer], [employer] Osteoporosis Screening on12/11/23.Satisfied by SHOSHANA Salter Gillian Electronic Signature on File Electronically Reviewed/Signed by: Kristi Garvey DO Author Signature Dt/Tm:03/18/2024 01:52 PM Department of Family [facility] Patient Care team information Care Team Personnel Name: Alec Garvey DO, Mariana Annette Position: Physician - Family Med Member Role: Primary Care Provider Address: Address: [address] [place] [id number] [place]
--- OUTSIDE RECORDS SUMMARY | 2024-06-28 19:04 | External Medical Summary | Continuity of Care Document ---
Author Name Unknown Organization [facility] [address] Address [address] [place], [place] [id number] Care Team Providers Care Credit Or Loans Officer Name Role Phone Kristi Mars [facility] [phone] [id number] Date[facility]): [facility]15/[facility] - 06/15/24 [facility] [address], [address] [place], [phone] Encounter Diagnosis Encounter for screening for respiratory tuberculosis(Final) - Discharge Disposition: Home or Self Care Attending Physician: Alec Garvey DO, Mariana Annette Referring Physician: Alec Garvey DO, Mariana Annette Allergies, Adverse Reactions, Alerts Substance Criticality Severity Reaction Reaction Severity Status sulfa drugs Unable to assess criticality Mild Nausea Active Immunizations Given and Recorded Vaccine Date Status [...] Status: Ordered diclofenac 1% topical gel Start: 04/23/24 5:44:00 PM EDT, 1 appl, topical, qid, Disp# 100 g, Refills: 5, PRN: Pain, Pharmacy: [facility]/pharmacy #[id number] Start Date: 04/23/24 Status: Ordered Echinacea oral tablet Start: 07/17/21 [...] Daily, Disp# 180 tab, Refills: 3, Pharmacy: [facility]/pharmacy #[id number] Start Date: 09/11/23 Status: Ordered methylphenidate 10 mg oral tablet Start: 05/28/24 5:04:00 PM EDT, 1 tab, PO, bid, Disp# 60 tab, Refills: 0, Note to Pharmacy: will need to discuss taper at subsequent visit - renewed as provided by previous PCP for now, Pharmacy: [facility]/pharmacy #[id number] Start Date: 05/28/24 Stop Date: 06/27/24 Status: Ordered methylphenidate 36 mg/24 hr oral tablet, extended release Start: 05/28/24 5:04:00 PM EDT, 1 tab, PO, qAM, Disp# 30 tab, Refills: 0, Note to Pharmacy: dose reduction per taper discussed 01/2023 visit, Pharmacy: [facility]/pharmacy #[id number] Start Date: 05/28/24 Stop Date: 06/27/24 Status: Ordered montelukast 10 mg oral tablet Start: 03/17/23 9:53:00 AM EDT, See Instructions, Disp# 90 tab, Refills: 3, TAKE 1 TABLET BY MOUTH EVERY DAY, Pharmacy: [facility]/pharmacy #[id number] Start Date: 03/17/23 Status: Ordered Osteo Bi-Flex Triple Strength Start: 07/17/21 2:11:00 PM EST, 1 tab, PO, bid Start Date: 07/17/21 Status: Ordered Premarin 0.625 mg/g vaginal cream with applicator Start: 04/23/24 5:44:00 PM EDT, 1 g =, vaginal, qTueFri, Disp# 30 g, Refills: 3, Pharmacy: [facility]/pharmacy #[id number] Start Date: 04/23/24 Status: Ordered ProAir HFA 90 mcg/inh inhalation [...] PO, Daily Start Date: 07/17/21 Status: Ordered Problem List Condition Confirmation Course Effective Dates [...] Pelvic floor dysfunction Confirmed Active 1father, brother Procedures Procedure Date Related Diagnosis Body Site Status Simple dental extraction 1 Completed 1all her teeth Results Laboratory List Name Date Quantiferon Gold TB (QUANTIFERON GOLD TB ) 06/15/24 Most recent to oldest [Reference Range]: 1 Quantiferon Gold TB. [NEG] NEGATIVE 1 *Unknown* (06/15/24 2:08 PM) 1Result Comment: M. tuberculosis infection NOT likely Social History Social History Type Response Smoking Status Never smoked cigaret beto Sex Sex Representation Female (finding) Patient Care team information Care Team Personnel Name: Alec Garvey DO, Mariana Annette Position: Physician - Family Med Member Role: Primary Care Provider Address: [address] [place] [phone]
--- OUTSIDE RECORDS SUMMARY | 2024-06-28 19:04 | External Medical Summary | Continuity of Care Document ---
Author Name Unknown Organization [address] Address [address] [place] [address] [phone] Care Team Providers Care Ground Services Instructor Name Role Phone Kristi Mars Primary Care P [email or web address] [phone] Encounter [facility] BRITTANYROBR [phone] Date(s): 03/11/24 - 03/11/[address] [place] [address], [facility] [address] [place] [address] [place] [phone] Encounter Diagnosis ADHD(Discharge Diagnosis) - 03/11/24 Adhesive capsulitis of left shoulder(Discharge Diagnosis) - 03/11/24 Asthma(Discharge Diagnosis) - 03/11/24 HTN (hypertension)(Discharge Diagnosis) - 03/11/24 History of hyperlipidemia(Discharge Diagnosis) - 03/11/24 Hypovitaminosis D(Discharge Diagnosis) - 03/11/24 Family history of pancreatic cancer(Discharge Diagnosis) - 03/11/24 Pelvic floor dysfunction(Discharge Diagnosis) - 03/11/24 Attention-deficit hyperactivity disorder, unspecified type(Final) - Adhesive capsulitis of left shoulder(Final) - Unspecified asthma, uncomplicated(Final) - Essential (primary) hypertension(Final) - Personal history of other endocrine, nutritional and metabolic disease(Final) - Vitamin D deficiency, unspecified(Final) - Discharge Disposition: Home or Self Care Attending Physician: Alec Garvey DO, Mariana Annette Referring Physician: Alec Garvey DO, Mariana Annette Allergies, Adverse Reactions, Alerts Substance Criticality Severity Reaction Reaction Severity Status sulfa drugs Unable to assess criticality Mild Nausea Active Assessment and Plan Extracted from: Title:Office Visit Note Author:Alec Garvey DO, Mariana Annette Date:03/11/24 1.ADHD STATUS:Chronic stable. GOAL:Maintain stability. PLAN:Cont current management 2.Adhesive capsulitis of left shoulder STATUS:Chronic stable. GOAL:Maintain stability. PLAN:Cont PT 3.Asthma STATUS:Chronic stable. GOAL:Maintain stability. PLAN:Cont current meds 4.HTN (hypertension) STATUS:Chronic stable. DATA:Labs reviewed. GOAL:Maintain stability. PLAN:Cont current meds. Check CMP 5.History of hyperlipidemia Check lipid panel 6.Family history of pancreatic cancer Neg MRI (should be done yearly) 7.Pelvic floor dysfunction Continue pelvic floor exercises at home. f/u 6 mo Immunizations Given and Recorded Vaccine Date Status [...] 06/01/16 Recorded pneumococcal 13-valent vaccine 06/26/15 Recorded 1Result Comment: Ashley Escobar LPN 2Result [...] 100 g, Refills: 0, PRN: Pain, Pharmacy: [facility]/pharmacy #[id number] Start Date: 10/27/23 Status: Ordered Echinacea oral [...] Daily, Disp# 180 tab, Refills: 3, Pharmacy: [facility]/pharmacy #[id number] Start Date: 09/11/23 Status: Ordered methylphenidate 10 mg oral tablet Start: 03/11/24 5:23:00 PM EDT, 1 tab, PO, bid, Disp# 60 tab, Refills: 0, Note to Pharmacy: will need to discuss taper at subsequent visit - renewed as provided by previous PCP for now, Pharmacy: [facility]/pharmacy #[id number] Start Date: 03/11/24 Stop Date: 04/10/24 Status: Ordered methylphenidate 36 mg/24 hr oral tablet, extended release Start: 03/11/24 5:23:00 PM EDT, 1 tab, PO, qAM, Disp# 30 tab, Refills: 0, Note to Pharmacy: dose reduction per taper discussed 01/2023 visit, Pharmacy: [facility]/pharmacy #[id number] Start Date: 03/11/24 Stop Date: 04/10/24 Status: Ordered montelukast 10 mg oral tablet Start: 03/17/23 9:53:00 AM EDT, See Instructions, Disp# 90 tab, Refills: 3, TAKE 1 TABLET BY MOUTH EVERY DAY, Pharmacy: [facility]/pharmacy #[id number] Start Date: 03/17/23 Status: Ordered Osteo Bi-Flex Triple Strength Start: 07/17/21 2:11:00 PM EST, 1 tab, PO, bid Start Date: 07/17/21 Status: Ordered Premarin 0.625 mg/g vaginal cream with applicator Start: 02/13/23 8:19:00 AM EDT, 1 g =, vaginal, qTueFri, Disp# 30 g, Refills: 0, Pharmacy: [email or web address]/pharmacy #[id number] Start Date: 02/13/23 Status: Ordered ProAir [...] Start Date: 07/17/21 Status: Ordered Mental Status 03/11/24 Barriers to Learning one year None evide nt Mandatory Health Literacy Documentation Yes Health Literacy Communication Barriers N ever Primary Language Algerian Problem List Condition Confirmation Course Effective Dates [...] Effective Dates Health Status Clinical Service Informant History of hyperlipidemia Discharge Diagnosis 03/11/24 Non-Specified Hypovitaminosis D Discharge Diagnosis 03/11/24 Non-Specified ADHD Discharge Diagnosis 03/11/24 Non-Specified Adhesive capsulitis of left shoulder Discharge Diagnosis 03/11/24 Non-Specified Asthma Discharge Diagnosis 03/11/24 Non-Specified HTN (hypertension) Discharge Diagnosis 03/11/24 Non-Specified Family history of pancreatic cancer Discharge Diagnosis 03/11/24 Non-Specified Pelvic floor dysfunction Discharge Diagnosis 03/11/24 Non-Specified Procedures Procedure Date Related Diagnosis Body Site Status Simple dental extraction 1 Completed 1all her teeth Results Laboratory List Name Date Comprehensive Metabolic Panel (COMP META B PANEL) 03/11/24 Lipid Profile (LIPOPROTEINS) 03/11/24 Vitamin D, 25-Hydroxy Level, Total (25-H YDROXY VITAMIN D) 03/11/24 Most recent to oldest [Reference Range]: 1 eGFR CKD-EPI [>60 mL/min/1.73 m2] 80 mL/ min/1.73 m2 1 (03/11/24 1:23 PM) Vitamin D, 25-Hydroxy [30-100 ng/mL] 35 ng/mL 2 (03/11/24: PM) Non-HDL 248 mg/dL 3 (03/11/24 PM) Estimated CrCl 54.49 mL/min (03/11/24 4:27 PM) Anion Gap [5-14 mmol/L] 2 mmol/L *LOW* (03/11/24 PM) Alb [3.5-5.0 g/dL] 3.7 g/dL (03/11/24 PM) Alk Phos [38-126 unit/L] 92 unit/L (03/11/24 PM) ALT [<35 unit/L] 17 unit/L (03/11/24 PM) AST [15-46 unit/L] 37 unit/L (03/11/24 PM) BUN [7-20 mg/dL] 17 mg/dL (03/11/24 PM) Ca [8.4-10.2 mg/dL] 9.1 mg/dL (03/11/24 PM) Chol/HDL 4 (03/11/24 PM) Chol [125-200 mg/dL] 324 mg/dL *HI* (03/11/24 PM) Cl- [96-107 mmol/L] 106 mmol/L (03/11/24 PM) HCO3 [22-30 mmol/L] 32 mmol/L *HI* (03/11/24 PM) Cret [0.60-1.00 mg/dL] 0.76 mg/dL (03/11/24 PM) Glu [74-106 mg/dL] 102 mg/dL (03/11/24 PM) HDL [>35 mg/dL] 76 mg/dL (03/11/24 PM) K [3.5-5.1 mmol/L] 3.8 mmol/L (03/11/24 PM) LDL Chol, Calculated [50-130 mg/dL] 218 mg/dL *HI* (03/11/24 PM) Na [137-145 mmol/L] 140 mmol/L (7/11/24 1:23 PM) T Bili [0.2-1.3 mg/dL] 0.8 mg/dL (03/11/24 1:23 PM) Prot [6.3-8.2 g/dL] 7.2 g/dL (03/11/24 1:23 PM) TG [<200 mg/dL] 152 mg/dL (03/11/24 1:23 PM) 1Result Comment: Testing Performed By: Dept of Pathology [facility] Andres Willett, [address] [facility] [address] 2Result Comment: Deficiency: <20 ng/mL Insufficiency: 21-29 ng/mL Sufficiency: 30-100 ng/mL Potenial Toxicity: >150 ng/mL 3Result Comment: Testing Performed By: Dept of Pathology [facility] Andres Willett, [address], [place] [address] Vital Signs Most recent to oldest [Reference Range]: 1 Patient Weight 65.2 kg (03/11/24 12:59 PM) Temperature [36.5-37.9 DegC] 36.8 DegC (03/11/24 12:59 PM) Blood Pressure 140/100mmHg (03/11/24 12:59 PM) Social History Social History Type Response Smoking Status Never smoked cigaret beto Sex FCM Outpt Note * Alec Garvey DO, Mariana Annette: PERFORM Event Display: FCM Outpt Note Authored Date: [id number] Chief Complaint pt here for 6 month f/u History of Present Illness Presents for 6 mo f/u FHx ofPancreatic CA: hasscreening MRI that was negative. 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 She is currently on concerta 36mg (from 54mg) and methylphenidate 10mg which she takes 1-2 times per day. She feels this reduced dose is not helpful and she feels she can't complete her daily tasks. Referred to psychiatry due to high dose of stimulants at patient's age. 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 Adhesive shoulder capsulitis: going to PT weekly, someimprovement. She has decreased ROM, pain when she tries to push her ROM limits. Some improvement with CBD gummies. HTN - has not been monitoring recently. Elevated 140/100 today. States she has not had anything to drink today. CompliantwithLisinopril 40mg. Asthma - on montelukast 10mg (takes twice a week or when symptomatic)and PRN albuterol. States montelukast dries her out. Stress incontinence - went to pelvic PT, doing home exercises. Missed mammo appointment, has yet to reschedule. Dexashowed osteopenia, FRAX risk 12.8% for major fracture, 2.8% for hip fracture. Physical Exam Vitals & Measurements T:36.8C BP:140/100 SpO2:96% WT:65.2kg WT:65.200kg(Dosing) PHQ2 Data(Data Documented on:03/11/2024 12:57) Emotional health assessment NEGATIVE General: _Alert and oriented, No acute distress Cardiovascular: _Normal rate, Regular rhythm, No murmur, No gallop. Respiratory: _Lungs are clear to auscultation, Respirations are non-labored, Breath sounds are equal Psych: Mood-affect congruence. Reports no SI/HI. Speech is of normal pace and content Assessment/Plan 1.ADHD STATUS:Chronic stable. GOAL:Maintain stability. PLAN:Cont current management 2.Adhesive capsulitis of left shoulder STATUS:Chronic stable. GOAL:Maintain stability. PLAN:Cont PT 3.Asthma STATUS:Chronic stable. GOAL:Maintain stability. PLAN:Cont current meds 4.HTN (hypertension) STATUS:Chronic stable. DATA:Labs reviewed. GOAL:Maintain stability. PLAN:Cont current meds. Check CMP 5.History of hyperlipidemia Check lipid panel 6.Family history of pancreatic cancer Neg MRI (should be done yearly) 7.Pelvic floor dysfunction Continue pelvic floor exercises at home. f/u 6 mo Attestation Time spent: Pre-visit planning: _5 Gyby-hk-uwal visit: _25 Post-visit (orders/documentation/coordination of care):5 Total visit time: _35 Problem List/Past Medical History Ongoing ADD (attention [...] 2 tab, PO, Daily, 3 refills methylphenidate(methylphenidate 36 mg/24 hr oral tablet, extended release), 36 mg= 1 tab, PO, qAM methylphenidate(methylphenidate 10 mg oral tablet), 10 mg= 1 tab, PO, bid montelukast(montelukast 10 mg oral tablet), See Instructions, [...] Vaccine due02/29/24and every 1year Adult COVID-19 Vaccination due03/11/24Unknown Frequency Adult Social Determinants of Health Screening due03/11/24Unknown Frequency Medicare Annual Wellness Visit due03/11/24and every 1year Shingles Vaccine due03/11/24One-time only Satisfied(in the past 1 year) Satisfied Adult Influenza Vaccine on06/06/23.Satisfied by SHOSHANA Salter Gillian Body Mass Index on09/11/23.Satisfied by SHOSHANA Salter Gillian Osteoporosis Screening on12/11/23.Satisfied by SHOSHANA Salter Gillian Electronic Signature on File Electronically Reviewed/Signed by: Kristi Garvey DO Author Signature Dt/Tm:03/11/2024 01:38 PM Department of Family Medicine [facility] Patient Care team information Care Team Personnel Name: Alec Garvey DO, Mariana Annette Position: Physician - Family Med Member Role: Primary Care Provider Address: Address: [address] [place] [address]
[2024-06-28 19:23] LABS: Estimated Average Glucose 108 mg/dl; Hemoglobin A1C 5.4 % (4.5-5.6)
[2024-06-28] MEDS: lisinopril 20 MG TAB PO SCH (20:41)
[2024-06-28 22:34] LABS: ANTI-Xa, LMWH(Low Molecular Wt 0.22 IU/ML (< 0.10)
[2024-06-29 04:46] LABS: Hematocrit (blood only) 36.8 % (37.0-47.0); Hemoglobin 12.4 g/dl (12.0-16.0); Mean Corpuscular Hemoglobin 30.2 pg (25.0-34.0); Mean Corpuscular Hgb Conc 33.7 g/dL (32.0-36.0); Mean Corpuscular Volume 89.8 fL (80.0-100.0); Mean Platelet Volume 9.4 fL (9.4-12.4); Platelet Count 230 K/uL (130-400); RDW Coefficient of Variation 12.3 % (11.5-14.5); RDW Standard Deviation 40.7 fL (36.4-46.3); White Blood Count 6.03 K/ul (4.8-10.8)
[2024-06-29 05:01] LABS: BUN Creatinine Ratio 22.5 (10-20); Calcium 8.8 mg/dl (8.6-10.3); Chol HDL Ratio 4.2 (0-5); Potassium 3.9 mmol/L (3.5-5.1)
[2024-06-29 05:06] LABS: ANTI-Xa, UFH(UnfractionatedHep 0.23 IU/ml (0.3-0.7)
[2024-06-29] MEDS: ATORVASTATIN 40 MG TAB PO SCH (08:01)
[2024-06-29] MEDS: ASPIRIN 81 MG ECTAB PO SCH (08:02)
[2024-06-29] MEDS ORDERED: ASPIRIN 81 MG ECTAB PO SCH (09:00)
--- NOTE | 2024-06-29 11:15 | Electrocardiogram Report ---
Test Reason : Blood Pressure : */* mmHG Vent. Rate : 82 BPM Atrial Rate : 82 BPM P-R Int : 134 ms QRS Dur : 90 ms QT Int : 392 ms P-R-T Axes : 46 70 68 degrees QTcB Int : 457 ms Normal sinus rhythm Possible Left atrial enlargement Borderline ECG When compared with ECG of 28-Jun-2024 12:27, No significant change was found Confirmed by Michel Dumont ([id number]) on 06/29/2024 11:15:33 AM Referred By: REFERRED SELF Confirmed By: Michel Dumont
--- NOTE | 2024-06-29 12:54 | Hospitalist Progress Note ---
Date of Service June 29, 2024 Assessment & Plan (1) Unstable angina: Plan: She appears to have suffered a non-ST elevation MS. EKG is nonacute and cardiac echo reveals no regional wall motion abnormalities but troponin is significantly elevated. Cardiology consultation and recommendations appreciated. She is currently on a heparin drip. She is also on aspirin, atorvastatin, lisinopril, and topical nitrates. Left heart catheterization pending. (2) Hypertensive urgency: Plan: She takes lisinopril for blood pressure control pill. Will use intravenous hydralazine as needed (3) Lung nodule: Plan: Incidental finding on CT scan. This can be followed up as an outpatient Plan Eventual discharge to home within the next day or 2 Admission and Anticipated Discharge Date Admission Date: June 28, 2024 Subjective Alert and oriented. She denies current chest discomfort. Awaiting left heart catheterization later today, June 29. Appreciate cardiology consultation and recommendations. She remains on a heparin drip. Chest CTA on admission was negative for PE. Cardiac echo reveals moderate LVH with no regional wall motion abnormalities and normal ejection fraction. Cholesterol is 314 with LDL 221 Review of Systems 2 Review of Systems: Constitutionalno fever or chills ENTno blurred vision, no double vision, no epistaxis, no sore throat Respiratoryno cough, no wheezing, no shortness of breath Cardiacno palpitations, no chest pain, no syncope Bob nausea, vomiting, diarrhea, melena, hematochezia GUno urinary retention, no urinary incontinence, no dysuria, no hematuria Musculoskeletalno joint pain, no muscle tenderness Skinno bruising, no rashes, no pruritus Neurono isolated weakness, no paresthesia, no weakness Psychno depression, no anxiety Physical Exam 2 Physical Exam: General-alert and oriented x3, no fever, no chills HEENT-head atraumatic and normocephalic, pupils equal and reactive to light, extraocular muscles intact Neck-no lymphadenopathy or thyromegaly, trachea midline Chest-clear to auscultation. No rales, wheezing or rhonchi Cardiac-regular rate and rhythm, normal S1 and S2 Abdomen-normal bowel sounds, no hepatosplenomegaly Extremities-no cyanosis, clubbing, or edema Neuro-cranial nerves II through XII intact, motor and sensory function within normal limits, strength symmetrical, no focal deficits Psych-normal affect, normal mood Results & Data Results & Data Vital Signs (Past 12 Hours) Vital Signs Temp Pulse Pulse Resp BP Pulse Ox O2 Del Method 06/29/24 12:20 36.6 C 55 L 18 222/141 H 96 Room Air 06/29/24 11:35 37 C 56 L 18 166/79 H 98 Room Air 06/29/24 09:01 73 06/29/24 07:58 36.6 C 57 L 17 119/74 93 Room Air 06/29/24 03:46 36.5 C 76 19 124/66 96 Room Air Laboratory Results 06/29/24 04:32 06/29/24 04:32 PG Care Time/CCT Total # of Minutes Spent Total Time Spent with Patient: Total time spent is greater than 50% in coordination of care (as documented) at patient's floor/unit and/or counseling patient: Coding Level of Care Code 76695 SUB INP/OBS CARE 3/50MIN Diagnoses Unstable angina I20.0 Hypertensive urgency I16.0 Lung nodule R91.1
[2024-06-29] MEDS ORDERED: hydrALAZINE HCL 20 MG/ML VIAL IV PRN (12:55)
[2024-06-29] MEDS: NITROGLYCERIN/D5W 100MCG/ML 20ML SYR ONE (13:09)
[2024-06-29] MEDS: HEPARIN (PORCINE) 1000 UNIT/ML 10 ML (CATH LAB USE ONLY) ONE (13:26)
[2024-06-29] MEDS: fentaNYL citrate PF 100 MCG/2 ML VIAL ONE (13:26)
[2024-06-29] MEDS: MIDAZOLAM HCL 1 MG/ML 2ML VIAL ONE (13:27)
[2024-06-29] MEDS: hydrALAZINE HCL 20 MG/ML VIAL ONE (13:27)
[2024-06-29] MEDS: OPTIRAY 350 ONE (13:27)
[2024-06-29] MEDS: hydrALAZINE HCL 20 MG/ML VIAL IV STA (13:28)
--- NOTE | 2024-06-29 13:56 | Pre Anesthesia Assessment ---
Date of Service June 29, 2024 Pre Sedation Assessment Vital Signs Temp Pulse Pulse Pulse Resp BP BP 06/29/24 13:50 71 18 194/85 H 06/29/24 13:35 78 18 175/73 H 06/29/24 12:20 36.6 C 55 L 18 06/29/24 11:35 37 C 56 L 18 06/29/24 09:01 73 06/29/24 07:58 36.6 C 57 L 17 06/29/24 03:46 36.5 C 76 19 06/28/24 23:54 37.1 C 65 20 06/28/24 19:48 36.5 C 66 18 06/28/24 17:12 36.8 C 79 17 06/28/24 17:12 36.8 C 58 L 17 06/28/24 16:06 70 18 144/110 H 06/28/24 15:39 207/104 H 06/28/24 15:30 75 21 241/116 H 06/28/24 15:21 71 26 H 185/98 H 06/28/24 15:00 69 24 211/101 H 06/28/24 14:30 75 18 206/94 H 06/28/24 14:14 76 BP Pulse Ox O2 Del Method 06/29/24 13:50 99 Room Air 06/29/24 13:35 97 Room Air 06/29/24 12:20 222/141 H 96 Room Air 06/29/24 11:35 166/79 H 98 Room Air 06/29/24 09:01 06/29/24 07:58 119/74 93 Room Air 06/29/24 03:46 124/66 96 Room Air 06/28/24 23:54 123/69 93 Room Air 06/28/24 19:48 189/90 H 95 Room Air 06/28/24 17:12 180/84 H 96 Room Air 06/28/24 17:12 180/84 H 96 Room Air 06/28/24 16:06 95 06/28/24 15:39 06/28/24 15:30 97 06/28/24 15:21 97 06/28/24 15:00 94 06/28/24 14:30 92 06/28/24 14:14 Cardiovascular RRR, no murmur, no edema Respiratory normal respiratory effort, lungs clear to auscultation Pre-Sedation Airway Assessment Smoking Status: Never smoker Hx Sleep Apnea: No Short, Thick Neck: No Thyromental Distance: > or= 3.5 Finger Breadths Oral Cavity: + Dentures Mallampati Class: II ASA: ASA3 NPO Status Date of Last Intake of Fluids: 06/28/24 Time of Last Intake of Fluids: 23:00 Date of Last Intake of Solid Food: 06/28/24 Time of Last Intake of Solid Foods: 23:00 Notes The planned sedation has been discussed with the patient. Informed Consent was obtained. I have identified the patient, determined the appropriateness of s edation and have assessed the patient immediately prior to the procedure. All medicine(s) and interventions are by my order.
[2024-06-29] MEDS: METOPROLOL TARTRATE 25 MG TAB PO ONE (14:34)
[2024-06-29 14:41] VITALS: RESP 18
[2024-06-30 07:33] LABS: Hematocrit (blood only) 37.9 % (37.0-47.0); Hemoglobin 12.9 g/dl (12.0-16.0); Mean Corpuscular Hemoglobin 30.6 pg (25.0-34.0); Mean Platelet Volume 9.6 fL (9.4-12.4); Platelet Count 229 K/uL (130-400); RDW Coefficient of Variation 12.5 % (11.5-14.5); RDW Standard Deviation 41.3 fL (36.4-46.3); Red Blood Count 4.21 M/uL (4.20-5.40); White Blood Count 5.88 K/ul (4.8-10.8)
[2024-06-30 07:53] LABS: Anion Gap 3 (3-11); BUN Creatinine Ratio 20.7 (10-20); Blood Urea Nitrogen 18 mg/dl (6-23); Carbon Dioxide 31 mmol/L (21-32); Chloride 103 mmol/L (98-107); Creatinine Clr Calc Pharmacy 49.9 ml/min; Glucose 91 mg/dl (70-99(Fasting)); Sodium 137 mmol/L (136-145)
[2024-06-30] MEDS: METOPROLOL SUCC 50MG EXT REL TAB PO SCH (08:54)
[2024-06-30] MEDS: ISOSORBIDE MONO EXTENDED REL 30 MG TABCR PO SCH (08:55)
--- NOTE | 2024-06-30 11:43 | Discharge Summary ---
Discharge Summary Date of Service June 30, 2024 Principal Dx & Hospital Course #1 = Principal Diagnosis (1) Unstable angina: She appears to have suffered a non-ST elevation OH. EKG is nonacute and cardiac echo reveals no regional wall motion abnormalities but troponin is significantly elevated. Cardiology consultation and recommendations appreciated. Left heart catheterization was completed on June 29. She has triple-vessel coronary artery disease and will need open heart surgery. She is currently asymptomatic. She will continue on aspirin, atorvastatin, lisinopril, metoprolol succinate, isosorbide mononitrate. She has been given a prescription also for sublingual nitroglycerin for as needed use. Fortunately the cardiac echo reveals normal left ventricular systolic function with no regional wall motion abnormalities (2) Hypertensive urgency: Improved with addition of other antihypertensives. Continue lisinopril as before. (3) Lung nodule: Incidental finding on CT scan. This can be followed up as an outpatient Plan Home today, June 30 Admission HPI Per Admitting Provider Patient is a 78-year-old female who presented to ED for ongoing SOB and chest pain. BP at admission 205/98, HR 76. ED course: CBC WNL; BMP with glucose 111 otherwise grossly WNL; troponin 1070.6; D-dimer 1580; CXR no acute process; CTA no evidence of PE, bronchial thickening may be infectious or inflammatory, small pulmonary nodules noted. EKG with HR 77, NSR, no ST elevation. Patient had episode of chest pain while in ED and while getting CT scan; provided with ASA 132 minutes, NTG 0.4 mg, and heparin drip started. 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 Presented for chest pain has been coming and going since 06/24, described as "elephant sitting on chest and back" without radiation to arm or neck. Rates the pain a 2-3/10 on the pain scale normally, with a 5/10 at its maximum. Reports additional shortness of breath that has been ongoing x weeks, and has not changed in quality, no cough. Denies nausea/vomiting, diaphoresis, WHITAKER, orthopnea, abdominal pain, lightheadedness, dizziness, headache. Additionally denies diarrhea/constipation, fever/chills. Patient did take her a.m. medications this morning. Please see Dr. Cuevas's attestation for changes/additions to treatment plan. Discharge Exam General-alert and oriented x3, no fever, no chills HEENT-head atraumatic and normocephalic, pupils equal and reactive to light, extraocular muscles intact Neck-no lymphadenopathy or thyromegaly, trachea midline Chest-clear to auscultation. No rales, wheezing or rhonchi Cardiac-regular rate and rhythm, normal S1 and S2 Abdomen-normal bowel sounds, no hepatosplenomegaly Extremities-no cyanosis, clubbing, or edema Neuro-cranial nerves II through XII intact, motor and sensory function within normal limits, strength symmetrical, no focal deficits Psych-normal affect, normal mood Discharge Plan Discharge Items Patient Disposition: Home - Self-Care Reason For Visit: ELEVATED TROPONIN, CHEST PAIN Discharge Diagnosis: Non-ST elevation OH, hypertensive urgency, incidental finding of lung nodule on CT scan Activity: Per Instructions section Non-emergency contact: Primary Care Provider and Php Consultant Call non-emergency contact if: you have any medication questions and your symp toms worsen Follow-up/Referrals: Kristi Mars DO [Primary Care Provider] - Diet: Regular and Heart Healthy Addtl Attending Provider Instructions: Multiple new medication prescriptions have been sent to [facility]. Use nitroglycerin tablets under the tongue as needed as directed for any recurrent chest or mid back discomfort. Follow-up with primary care provider and control panel operator as soon as possible. Incidental finding of a lung nodule on the CT scan. This will need follow-up at a later date Pending Studies at Discharge: No Stand-Alone Forms: My [facility] [employer], Smoking Cessation Medications and DC Order Prescriptions: New atorvastatin 40 mg Tablet 40 mg PO QAM Qty: 3 0RF metoprolol succinate 50 mg Tablet Extended Release 24 Hr 50 mg PO QAM Qty: 30 0RF isosorbide mononitrate 30 mg Tablet Extended Release 24 Hr 30 mg PO QAM Qty: 30 0RF nitroglycerin [Nitrostat] 0.4 mg Tablet, Sublingual 0.4 mg sublingual Q5M PRN (Reason: chest pain) Qty: 25 0RF aspirin 81 mg Tablet,Delayed Release (Dr/Ec) 81 mg PO DAILY Qty: 0 0RF Continued lisinopril 20 mg tablet 20 mg PO HS Discharge Orders: Discharge Order (Routine); Ordered 06/30/24 Ordered By: Suresh Wild Admission Data Admit Date/Time: 06/28/24 14:36 Attending Provider: Suresh Wild Admit Provider: Cleve Cuevas Primary Care Provider: Kristi Mars Other Providers: Michel Dumont; Cleve Cuevas; Randall Fortune Hospital Stay Data Consultations 06/28/24 14:02 Consult Cardiology Stat ED Decision to Admit Stat 06/28/24 17:12 Consult Cardiology Routine 06/29/24 18:42 Consult Cardiac Rehabilitation Routine Procedures Performed Operation Date: 06/29/24 12:00 Actual Procedures p Cineradiography w/Routine Exam - Randall Fortune MD, PhD p Cath, Coronaries ONLY (no LV) - Randall Fortune MD, PhD Diagnostic Imagining Performed 06/28/24 13:31 CT angio chest PE protocol Stat 06/29/24 13:03 CL Cath Imgs for PACS use only Routine Pending Results Patient Have Any Pending Studies at Discharge: No Discharge Instructions Given to Patient (Per Discharging Provider) Multiple new medication prescriptions have been sent to [facility]. Use nitroglycerin tablets under the tongue as needed as directed for any recurrent chest or mid back discomfort. Follow-up with primary care provider and control panel operator as soon as possible. Incidental finding of a lung nodule on the CT scan. This will need follow-up at a later date Total Time Total Time Spent Total Time Spent (In Minutes): 45 minutes Coding Level of Care Code 18535 INP/OBS DISCH >30 MIN Diagnoses Unstable angina I20.0 Hypertensive urgency I16.0 Lung nodule R91.1
[2024-06-30 11:55] VITALS: BP 115/79; TEMP 98.2; O2SAT 94
[2024-06-30] MEDS: NITROGLYCERIN SL 0.4 MG/TAB TAB SL PRN (12:19)
[2024-06-30 14:05] VITALS: PULSE 61
--- NOTE | 2024-07-01 10:56 | Post Anesthesia Assessment ---
Date of Service June 29, 2024 Post Sedation Assessment Vital Signs Temp Pulse Pulse Pulse Resp BP Pulse Ox 06/30/24 13:00 61 06/30/24 12:07 36.8 C 55 L 18 115/79 94 06/30/24 11:54 36.8 C 91 H 18 115/79 94 O2 Del Method 06/30/24 13:00 06/30/24 12:07 06/30/24 11:54 Room Air Recovery Score Activity: Moves 4 extremities Respiration: Deep Breath/Cough Circulation: +/-20% PreAnes Value Consciousness: Fully Awake Oxygen Saturation: > 92% On Room Air Post Anesthesia Score: 10 Discharge Sedation Level of Care: Fast Track Phase II Post Sedation Plan On clinical assessment, the patient appears to have tolerated the sedation without complications. Patient is recovering as anticipated. Patient will continue to be monitored by nursing and may be discharged when sedation discharge criteria are met per below protocol. Upon Completions of procedure up to 15 minutes continue every 5 minute vital signs and the P.A.R. score; then discharge to a Phase I or Fast Track to Phase II per the following guidelines: * Discharge Patient to appropriate Phase II area if PAR is 8 or greater or return to pre- procedure baseline. The post - procedure orders will be as directed. * If PAR score is less than 8 or not return to pre-procedure baseline then patient will follow Phase I monitoring till PAR is reached for Phase II. The Phase I may be done in procedure room or may call to secure a Phase I area. * If naloxone or flumazenil are used for reversal, hold in Phase I for continued monitoring from when last reversal dose was given for a minimum of 60 minutes or longer pending the nurse and/or physician discretion of patient condition before discharge to Phase II. Please call the Sedation Physician to re-evaluate and complete post-note for discharge to Phase II area. Do NOT discharge from procedure sedation or Phase 1 until post- sedation evaluation note is complete by procedure /sedation MD Sedation Discharge Instructions to be given to the patient at discharge to home. [facility] Procedure Codes (Charges) Indication for Procedure Indication for procedure: NSTEMI Sedation/Anesthesia Procedure 1: Sedation/Anesthesia: 25231 Mod Sedation by the same physician;Init15 Min Child Age 5 & Up (Start time 1317, end time 1330) Total Sedation Time (minutes): 13
--- NOTE | 2024-07-01 11:13 | Cardiac Catheterization ---
[facility] Data: [employer] Cardiac Status Clinical evaluation leading to the procedure CAD Presenation: Non STEMI Anginal Classification: CCS IV Heart Failure: No Cardiogenic Shock within 24 Hours: No Cardiac Arrest within 24 Hours: No Imaging Studies Past 6 Months: Yes Stress Studies Past 6 Months: No Coronary Anatomy Dominant: Right Left Main (% Stenosis): Distal (20%) LAD (% Stenosis): Proximal (Diffuse 80 to 90%), Mid (Up to 90%) and Distal (Early 50 to 70% then luminal irregularities) D1 (% Stenosis): Ostial (99%) and Proximal (50 to 70%) Circumflex (% Stenosis): Proximal (30 to 40%) OM1 (% Stenosis): Normal RCA (% Stenosis): Proximal (99%) and Distal (80%) R PDA (% Stenosis): Normal R PL1 (% Stenosis): Normal Diagnostic Physicians Name: Randall Fortune MD, PhD Closure Device Percutaneous Entry Location: Radial Closure Device: Radial Band Recommendations: Medical Therapy and/or Counseling and CABG Cardiac Cath Procedure Full Procedure Date July 01, 2024 Pre-Procedure Diagnosis Pre-Procedure Diagnosis: Non STEMI AUC Score AUC Score: 07 Post-Procedure Diagnosis Post-Procedure Diagnosis: Severe CAD Procedure(s) Performed Procedure(s) Performed: Coronary Angiography Batting Machine Operator Insulation Randall Fortune MD, PhD Estimated Blood Loss Estimated Blood Loss: Less than 3 cc Medication(s) Medication(s): Fentanyl, Heparin, Lidocaine 1%, Nicardipine, Nitroglycerin and Versed Summary of Findings Brief description: Patient was brought to the cardiac catheterization suite where she was shaved and prepped in a sterile fashion. Sedated using IV Versed and fentanyl. Soft tissues of the right wrist were anesthetized using 2 mL of 1% Xylocaine. The right radial accessed via modified Seldinger technique and a 6 Mongolian radial artery glide sheath was placed. Patient was provided anticoagulation with IV heparin and antispasmodics including nicardipine and nitroglycerin. All catheters were advanced and exchanged over a 0.035 J-tip wire. Left coronary angiography in orthogonal views with a 5 [place]ian [place] 4 diagnostic catheter. Right coronary angiography in orthogonal views with a 5 [place] 4 diagnostic catheter. Diagnostic catheters were removed. Radial artery sheath was removed. Hemostasis was obtained using the TR band. Patient was hemodynamically stable and asymptomatic. She was returned to the recovery area. This ended the case. Coronary angiography findings: KUM-sjbvp-bcomcva vessel trifurcating into LAD, ramus, and circumflex. Distally up to 20% stenosis. LAD-proximal diffuse disease with maximum stenosis 80%. Mid vessel with diffuse calcific disease up to 90% stenosed. Early distal vessel has diffuse disease and 50 to 70% stenosis. There is a medium to large caliber branching first diagonal with ostial 99% stenosis and proximal 50 to 70% stenosis. The more distal LAD and apical LAD have mild luminal irregularities. Ramus-this is very large and branching. There is a long eccentric proximal stenosis of 90 to 95%. Moderate calcification in the proximal segment. LCx-medium caliber and nondominant. Proximal 40 to 50% long stenosis. TVL-rhvup-ajbcqim and dominant vessel. Proximally there is a shelf like lesion which narrows up to 99% and is calcified. The mid vessel also has calcification and diffuse mild disease less than 50% stenosis. Distally there is a focal stenosis of 80% occurring before the bifurcation. The vessel bifurcates into a large PDA and a large branching right posterolateral these vessels do not appear to have any significant disease. Summary: 1. Severe multivessel coronary disease with significant calcification. 2. Initiate guideline directed medical therapy for secondary prevention of coronary disease to include low-dose aspirin, high intensity statin therapy, IVET inhibitor, and beta-alba. Adding isosorbide mononitrate for anginal relief. 3. Patient's non-ST elevation DC seems to be type II from severe multivessel coronary disease in conjunction with severely elevated blood pressure. No acute lesions identified. 4. We will refer the patient to tertiary center "heart team" evaluation regarding best approach for revascularization. Hemodynamics Rest Ao:: 102/52 mmHg Final Ao: 126/68 mmHg LV: Not performed Recommendations Recommendations: Medical Therapy and/or Counseling and CABG Radiation Exposure (mGy) 439 mGy, fluoroscopy time 2.2 minutes Contrast (mls) 85 cc Anesthesia 1 mg Versed, 25 mcg fentanyl IV. Start time 1317, end time 1330 Procedural Complication(s) None Disposition Supervisor [employer] Holding/Recovery I attest to the content of the Intraoperative Record and any orders documented therein. Any exceptions are noted below. [employer] Card Cath Procedure Codes Cardiac Catheterization Procedure 1: Cardiovascular Cath Procedures: 77496 Coronaries Moderate Sedation Procedure 1: Sedation/Anesthesia: 52601 Mod Sedation by the same physician;Init15 Min Child Age 5 & Up (Initial 13 minutes) PG Care Time/CCT Total # of Minutes Spent Total Time Spent with Patient: Total time spent is greater than 50% in coordination of care (as documented) at patient's floor/unit and/or counseling patient:
== END 2024-06-30 14:08 | disposition home or self-care (01) | DRG 282 ==
LOC: ED 12:13 → 2E 14:36 → SUATTDRO 14:36 → 2E 16:50
PROC: CLB.CCO (2024-06-29 12:00)

== ENCOUNTER 2024-07-15 17:36 | Inpatient (IN) ==
[2024-07-15 18:18] LABS: Basophils # (auto) 0.03 K/uL (0.00-0.20); Basophils % (auto) 0.6 %; Eosinophils # (auto) 0.23 K/uL (0.00-0.50); Eosinophils % (auto) 4.3 %; Hematocrit (blood only) 36.9 % (37.0-47.0); Hemoglobin 12.4 g/dl (12.0-16.0); Immature Granulocytes # (auto) 0.01 K/uL (0.01-0.20); Immature Granulocytes % (auto) 0.2 %; Lymphocytes # (auto) 1.12 K/uL (1.20-3.40); Lymphocytes % (auto) 21.1 %; Mean Corpuscular Hemoglobin 30.5 pg (25.0-34.0); Mean Corpuscular Hgb Conc 33.6 g/dL (32.0-36.0); Mean Corpuscular Volume 90.9 fL (80.0-100.0); Mean Platelet Volume 9.8 fL (9.4-12.4); Monocytes % (auto) 5.6 %; Neutrophils # (auto) 3.62 K/uL (1.40-6.50); Neutrophils % (auto) 68.2 %; Platelet Count 227 K/uL (130-400); RDW Coefficient of Variation 12.6 % (11.5-14.5); RDW Standard Deviation 41.7 fL (36.4-46.3); Red Blood Count 4.06 M/uL (4.20-5.40); White Blood Count 5.31 K/ul (4.8-10.8)
--- NOTE | 2024-07-15 18:22 | XRay Report ---
Chest radiograph, one view History: Chest pain Comparison: 06/28/2024 Findings: Single AP view of the chest performed. No focal consolidation or pleural effusion. No pneumothorax. The cardiomediastinal silhouette is within normal limits. Normal pulmonary vascularity. No evidence for lymphadenopathy. No visualized bony or soft tissue abnormality. Impression: Normal chest radiograph Electronically signed by Michel Garcia 07-15-2024 6:21 PM
--- NOTE | 2024-07-15 18:35 | Emergency Department Note ---
Impression & Plan Precordial chest pain, Hypertension, History of SD (myocardial infarction) ED Provider Note NAME: PER RUEDA AGE: 78 SEX: F : 1945 ARRIVES VIA: Walk-In INFORMANT: [Patient] ED PROVIDER(S): [Stephan Marte MD] CHIEF COMPLAINT: Chest pain HISTORY OF PRESENT ILLNESS: The patient is a 78-year-old female presents with some higher blood pressure and chest discomfort. The patient had an SD recently and was not a candidate for stenting. She is to be scheduled for a bypass in the near future. She is currently on medications to control her coronary disease. The patient has been having some higher blood pressure readings, she has had some chest pain that has come and gone. It has been a heaviness. No shortness of breath. The pain comes on at random and is not necessarily exertional. Patient did take a nitroglycerin yesterday, she has not taken any today. Because of the ongoing symptoms, she presents for evaluation. PMHx/PSHx/Social Hx: See Below PHYSICAL EXAM: GENERAL: Patient is in no acute distress. HEENT: No acute trauma, normocephalic atraumatic, mucous membranes moist, no nasal congestion. NECK: No stridor, no adenopathy, no meningismus, trachea is midline. LUNGS: Clear to auscultation bilaterally, no wheeze, no rhonchi, breath sounds equal. HEART: Without murmurs gallops or rubs, regular rate and rhythm. ABDOMEN: Soft, nontender, no peritonitis. EXTREMITIES: No cyanosis, full range of motion of all the joints without pain or difficulty. NEUROLOGIC: Oriented x 3, no acute motor or sensory deficits, no focal weakness. SKIN: No jaundice, no diaphoresis. DIFFERENTIAL DIAGNOSIS: SD, angina, uncontrolled hypertension, coronary artery disease, among others. EMERGENCY DEPARTMENT PROCEDURES: MEDICAL DECISION MAKING: There is no leukocytosis or concerning anemia. There is a normal platelet count. No coagulopathy. No renal failure or significant electrolyte abnormality. No concerning liver enzyme elevation. No evidence for pancreatitis. ECG shows a sinus bradycardia, no ST elevation. Cardiac enzyme testing x 1 is not consistent with acute cardiac injury. Chest x-ray does not show mediastinal widening or CHF. On exam, the patient was hypertensive, she was not in distress. She was afebrile. The patient was given 2 inches of nitroglycerin paste. The patient recently had an SD. She is to undergo coronary bypass grafting surgery in the near future. She presents with a very high blood pressure and some chest discomfort. Hospitalization is indicated. I did speak with cardiology. She will be seen by them in consult. The goal for now is to control the blood pressure and to better manage her symptoms. I spoke with case management, the on-call hospitalist was consulted. The patient is aware of the need for a hospital stay. Prior/Outside records/notes reviewed: None ECG per my interpretation: Indication was chest pain. The ECG shows a sinus bradycardia with a PAC. The rate is 58. There is no ST elevation, no PVCs. The QTc is 404. Continuous Cardiac Monitoring per my interpretation: An order was placed for continuous cardiac monitoring. The monitor shows a rate of 56 with sinus bradycardia. Imaging/x-ray results per my interpretation: Chest x-ray does not show mediastinal widening, pneumonia or CHF. Chronic Medical/Social conditions affecting care: Advanced age. Recent SD. Care/Management discussed with: Case management, the on-call hospitalist. Cardiology-Dr. Price Level of care consideration(s): After review of the information above and other included data: --I believe the patient requires escalation of care to admission DISPOSITION: Admission Past Med/Surg History Problem List (Updated 07/15/24 @ 20:37 by Stephan Marte MD) History of SD (myocardial infarction) (Acute) Hypertension (Acute) Precordial chest pain (Acute) Elevated troponin (Acute) Medical History CAD (coronary artery disease) Catheterization 07/01/[address] Fortune - severe multivessel CAD with significant calcification Lung nodule Acute non-ST elevation myocardial infarction (NSTEMI) Hypertensive urgency Social History Smoking Status: Never smoker Hx Alcohol Use: Yes Hx Substance Use: No Preferred Language: German Communication Ability: Effective Fishing Instructor Required: No Beliefs That Will Affect Care: None Current Living Situation: Alone Feels Safe at Home: Yes Assistive Devices: None Allergies Allergies Allergy/AdvReac Type Severity Reaction Status Date / Time Sulfa (Sulfonamide Allergy Mild Abdominal Unverified 07/15/24 20:18 Antibiotics) Pain Home Meds Home Medications Medication Instructions Recorded Confirmed lisinopril 20 mg tablet 20 mg PO BID 06/28/24 07/15/24 amlodipine 2.5 mg tablet 2.5 mg PO DAILY 07/15/24 07/15/24 biotin 1 mg capsule 1 mg PO DAILY 07/15/24 07/15/24 calcium 100 mg capsule 100 mg PO DAILY 07/15/24 07/15/24 cholecalciferol (vitamin D3) 10 10 mcg PO DAILY 07/15/24 07/15/24 mcg (400 unit) capsule (Vitamin D3) coQ10 (ubiquinol) 100 mg capsule 100 mg PO DAILY 07/15/24 07/15/24 methylphenidate HCl 10 mg tablet 10 mg PO DAILY 07/15/24 07/15/24 methylphenidate HCl 36 mg 36 mg PO DAILY 07/15/24 07/15/24 tablet,extended release 24 hr metoprolol succinate 50 mg 50 mg PO QPM 07/15/24 07/15/24 tablet,extended release 24 hr omega-3 fatty acids 1,000 mg PO DAILY 07/15/24 07/15/24 vitamin B complex 1 cap PO DAILY 07/15/24 07/15/24 Previous Rx's Medication Instructions Recorded aspirin 81 mg tablet,delayed 81 mg PO DAILY #0 tabs 06/30/24 release atorvastatin 40 mg tablet 40 mg PO QAM #3 tabs 06/30/24 isosorbide mononitrate 30 mg 30 mg PO QAM #30 tabs 06/30/24 tablet,extended release 24 hr nitroglycerin 0.4 mg sublingual 0.4 mg sublingual Q5M PRN chest 06/30/24 tablet (Nitrostat) pain #25 tabs Results & Data (ED) Vital Signs Vital Signs - 24 hr 07/15/24 17:38 07/15/24 18:00 07/15/24 18:01 Temperature 36.4 C L Temperature Source Temporal Artery Scan Pulse Rate 56 L 56 L Pulse Rate from SpO2 Sensor Respiratory Rate 18 Blood Pressure 249/92 H 192/94 H Blood Pressure Mean 144 126 Pulse Oximetry 93 Oxygen Delivery Method Room Air Oxygen Flow Rate Sepsis Recent Fever Within 48 Hours No Sepsis New/Unexplained Change in Mental Status N/A Sepsis Action Taken by Nursing No Action Required 07/15/24 18:03 07/15/24 18:05 07/15/24 18:05 Temperature Temperature Source Pulse Rate 57 L Pulse Rate from SpO2 Sensor 57 L Respiratory Rate 17 Blood Pressure Blood Pressure Mean Pulse Oximetry 95 95 95 Oxygen Delivery Method Room Air Room Air Oxygen Flow Rate 0 Sepsis Recent Fever Within 48 Hours Sepsis New/Unexplained Change in Mental Status Sepsis Action Taken by Nursing 07/15/24 18:27 07/15/24 18:30 07/15/24 18:33 Temperature Temperature Source Pulse Rate 61 61 Pulse Rate from SpO2 Sensor 61 60 Respiratory Rate 21 17 Blood Pressure 203/90 H Blood Pressure Mean 118 Pulse Oximetry 96 95 Oxygen Delivery Method Oxygen Flow Rate Sepsis Recent Fever Within 48 Hours Sepsis New/Unexplained Change in Mental Status Sepsis Action Taken by Nursing 07/15/24 19:00 07/15/24 19:00 07/15/24 19:27 Temperature Temperature Source Pulse Rate 59 L 55 L Pulse Rate from SpO2 Sensor 59 L 57 L Respiratory Rate 18 19 Blood Pressure 215/110 H Blood Pressure Mean 164 Pulse Oximetry 96 94 Oxygen Delivery Method Oxygen Flow Rate Sepsis Recent Fever Within 48 Hours Sepsis New/Unexplained Change in Mental Status Sepsis Action Taken by Nursing 07/15/24 19:31 07/15/24 19:31 07/15/24 19:36 Temperature Temperature Source Pulse Rate 56 L Pulse Rate from SpO2 Sensor 59 L Respiratory Rate 19 Blood Pressure 228/94 H 228/94 H Blood Pressure Mean 149 149 Pulse Oximetry 94 Oxygen Delivery Method Oxygen Flow Rate Sepsis Recent Fever Within 48 Hours Sepsis New/Unexplained Change in Mental Status Sepsis Action Taken by Nursing 07/15/24 19:39 07/15/24 20:00 Temperature Temperature Source Pulse Rate 53 L 54 L Pulse Rate from SpO2 Sensor 52 L Respiratory Rate 18 20 Blood Pressure 202/109 H Blood Pressure Mean 155 Pulse Oximetry 95 96 Oxygen Delivery Method Room Air Room Air Oxygen Flow Rate Sepsis Recent Fever Within 48 Hours Sepsis New/Unexplained Change in Mental Status Sepsis Action Taken by Shelter Medications Current Medication List: was personally reviewed by me Laboratory Data Attestation: I reviewed the patient's lab results. 07/15/24 18:03 07/15/24 18:03 Lab Results 07/15/24 Range/Units 18:03 WBC 5.31 (4.8-10.8) K/ul RBC 4.06 L (4.20-5.40) M/uL Hgb 12.4 (12.0-16.0) g/dl Hct 36.9 L (37.0-47.0) % MCV 90.9 (80.0-100.0) fL MCH 30.5 (25.0-34.0) pg MCHC 33.6 (32.0-36.0) g/dL RDW Std Deviation 41.7 (36.4-46.3) fL RDW Coeff of Deirdre 12.6 (11.5-14.5) % Plt Count 227 (130-400) K/uL MPV 9.8 (9.4-12.4) fL Immature Gran % (Auto) 0.2 % Neut % (Auto) 68.2 % Lymph % (Auto) 21.1 % Baldwin % (Auto) 5.6 % Eos % (Auto) 4.3 % Baso % (Auto) 0.6 % Neut # (Auto) 3.62 (1.40-6.50) K/uL Lymph # (Auto) 1.12 L (1.20-3.40) K/uL Baldwin # (Auto) 0.30 (0.11-0.59) K/uL Eos # (Auto) 0.23 (0.00-0.50) K/uL Baso # (Auto) 0.03 (0.00-0.20) K/uL Immature Gran # (Auto) 0.01 (0.01-0.20) K/uL PT 10.3 (9.0-12.0) Seconds INR 0.9 (0.9-1.1) APTT 24 (21-31) Seconds PTT Ratio 0.9 Sodium 139 (136-145) mmol/L Potassium 3.9 (3.5-5.1) mmol/L Chloride 104 (98-107) mmol/L Carbon Dioxide 30 (21-32) mmol/L Anion Gap 5 (3-11) BUN 18 (6-23) mg/dl Creatinine 0.80 (0.6-1.2) mg/dl Est Cr Clr Drug Dosing 53.6 ml/min eGFR 74.90 BUN/Creatinine Ratio 22.5 H (10-20) Glucose 117 H (70-99(Fasting)) mg/dl Calcium 9.2 (8.6-10.3) mg/dl Magnesium 1.9 (1.7-2.4) mg/dl Total Bilirubin 0.3 (0.2-1.0) mg/dl AST 14 (13-39) U/L ALT 11 (7-52) U/L Alkaline Phosphatase 87 (34-104) U/L Troponin I High Sens 13.6 (0-14) pg/ml Total Protein 6.1 (6.0-8.3) gm/dl Albumin 3.5 (3.4-5.0) gm/dl Globulin 2.6 (2.5-4.0) gm/dl Albumin/Globulin Ratio 1.3 (0.9-2) Lipase 71 (11-82) U/L Administered Medications Discontinued Medications Lisinopril (Lisinopril 20 Mg Tab) 20 mg PO NOW STA Stop: 07/15/24 19:30 Last Admin: 07/15/24 20:15 Dose: 20 mg Documented By: OZZIE Metoprolol Succinate (Metoprolol Succ 50mg Ext Rel Tab) 50 mg PO NOW STA Stop: 07/15/24 19:30 Last Admin: 07/15/24 20:14 Dose: 50 mg Documented By: OZZIE Nitroglycerin (Nitroglycerin 2% Ointment 30gm Tube) 1 inch EXT NOW STA Stop: 07/15/24 18:30 Last Admin: 07/15/24 19:04 Dose: Not Given Documented By: OZZIE Nitroglycerin (Nitroglycerin 2% Ointment 30gm Tube) 2 inch EXT NOW STA Stop: 07/15/24 19:04 Last Admin: 07/15/24 19:04 Dose: 2 inch Documented By: OZZIE Imaging Data Radiologist's Impression: Chest X-Ray 07/15/24 18:05 Chest radiograph, one view History: Chest pain Comparison: 06/28/2024 Findings: Single AP view of the chest performed. No focal consolidation or pleural effusion. No pneumothorax. The cardiomediastinal silhouette is within normal limits. Normal pulmonary vascularity. No evidence for lymphadenopathy. No visualized bony or soft tissue abnormality. Impression: Normal chest radiograph Electronically signed by Michel Garcia 07-15-2024 6:21 PM Discharge Plan Visit Data Chief Complaint: Chest Pain Stated Complaint: CHEST PAIN, BP HIGH, ED Provider: Stephan Marte Discharge Problem: Precordial chest pain, Hypertension, History of SD (myocardial infarction) Patient Disposition: Admitted As Inpatient Condition: Fair Discharge Instructions Interventions: ED Discharge Assessment Last Done: 07/15/24 20:22 Forms Stand Alone Forms: [employer] Prescriptions Prescriptions: No Action lisinopril 20 mg tablet 20 mg PO BID atorvastatin 40 mg Tablet 40 mg PO QAM Qty: 3 0RF isosorbide mononitrate 30 mg Tablet Extended Release 24 Hr 30 mg PO QAM Qty: 30 0RF aspirin 81 mg Tablet,Delayed Release (Dr/Ec) 81 mg PO DAILY Qty: 0 0RF nitroglycerin [Nitrostat] 0.4 mg Tablet, Sublingual 0.4 mg sublingual Q5M PRN (Reason: chest pain) Qty: 25 0RF amlodipine 2.5 mg tablet 2.5 mg PO DAILY metoprolol succinate 50 mg tablet extended release 24 hr 50 mg PO QPM methylphenidate HCl 10 mg tablet 10 mg PO DAILY vitamin B complex Capsule 1 cap PO DAILY calcium 100 mg Capsule 100 mg PO DAILY cholecalciferol (vitamin D3) [Vitamin D3] 10 mcg (400 unit) Capsule 10 mcg PO DAILY Fish Oil Capsule 1,000 mg PO DAILY coQ10 (ubiquinol) 100 mg Capsule 100 mg PO DAILY biotin 1 mg Capsule 1 mg PO DAILY methylphenidate HCl 36 mg tablet extended release 24hr 36 mg PO DAILY Referrals Referrals: Kristi Mars DO [Primary Care Provider] - Discharge Problem: Hypertension Qualifiers: Hypertension type: unspecified Qualified Code(s): I10 - Essential (primary) hypertension
[2024-07-15 18:39] LABS: Albumin Globulin Ratio 1.3 (0.9-2); Albumin Level 3.5 gm/dl (3.4-5.0); BUN Creatinine Ratio 22.5 (10-20); Bilirubin,Total 0.3 mg/dl (0.2-1.0); Calcium 9.2 mg/dl (8.6-10.3); Creatinine Clr Calc Pharmacy 53.6 ml/min; Globulin 2.6 gm/dl (2.5-4.0); Magnesium 1.9 mg/dl (1.7-2.4); Potassium 3.9 mmol/L (3.5-5.1); Total Protein 6.1 gm/dl (6.0-8.3)
[2024-07-15 18:42] LABS: Troponin I High Sensitivity 13.6 pg/ml (0-14)
[2024-07-15 18:50] LABS: INR 0.9 (0.9-1.1); Partial Thromboplastin Ratio 0.9; Partial Thromboplastin Time 24 Seconds (21-31); Prothrombin Time 10.3 Seconds (9.0-12.0)
[2024-07-15] MEDS: NITROGLYCERIN 2% OINTMENT 30GM TUBE EXT STA ×2 (19:04)
--- NOTE | 2024-07-15 19:41 | History & Physical Report ---
Date of Service July 15, 2024 Assessment & Plan (1) Hypertensive urgency: Plan: 78yo female with history of HTN, severe multi-vessel CAD noted on recent catheterization 07/01/24 presenting from home with poorly controlled blood pressure, some intermittent discomfort in back between shoulder blades prior to arrival. Patient has been compliant with her medications. Recently had timing of some of her medications changed and started on Amlodipine 2.5mg daily which she took this AM for the first time. Blood pressures elevated at home 160's - 170's and markedly elevated here in the ER > 200. Nitro paste has been placed -Admit to PCU -Evening PO medications ordered - Lisinopril and Metoprolol - administered in the ER. Follow blood pressure closely -Continue Amlodipine 2.5mg po daily - this medication was recently started by Cardiology. Patient's first dose was 07/15/24 AM -Continue Isosorbide mononitrate ER - will increase from 30mg po daily to 60mg po daily -Continue metoprolol 50mg po qPM. Patient does have bradycardia - caution with increasing dose -Monitor closely, if BP continues to be elevated will add PRN PO Hydralazine -Will hold patient's Methylphenidate for now (2) CAD (coronary artery disease): Plan: Patient with severe multi-vessel CAD with calcifications noted on catheterization 07/01/24. She is scheduled to meet with Cardiology at [facility] on 07/20/24 for assessment for CABG. No chest pain at present. Troponin has been WNL and EKG with no acute ischemic changes. -Continue ASA 81mg po daily -Continue Atorvastatin 40mg po qPM -Continue Lisinopril, Metoprolol, Isosorbide and Amlodipine Plan F/E/N - Saline lock. Electrolytes WNL. AHA/Low Na diet Ppx - Low risk for DVT, encourage ambulation as tolerated Code - Full per discussion with patient Dispo- Admit to PCU History of Present Illness Chief Complaint: hypertension Primary Care Provider: DO Kathie Heck is a pleasant 78yo female presenting with hypertension and chest discomfort. Patient was recently admitted to [facility] from 06/28 - 06/30 after presenting with SOB and chest pain. Found to have NSTEMI. Patient had a cardiac catheterization performed which revealed triple-vessel coronary artery disease. No stents were placed. Patient was discharged home in stable condition on 06/30/24. She has been following with Dr. Florian of Cardiology. They are coordinating with [facility] for patient to have CABG performed. She has her initial consult appointment scheduled for 07/20/24. Patient presents with hypertension. Patient's blood pressure was high last night in the 170's so she took one Nitro tablet with improvement in blood pressure to the 150's. She was recently seen by Cardiology and had some medications changed. Patient filled her prescriptions today and started her new medication regimen this morning. She took her Amlodipine 2.5mg, Lisinopril 20mg and Isosorbide 30mg this AM. Her blood pressure, however has been quite high. She has been watching it at home and it was in the upper 160-170s. Additionally she had some occasional back discomfort between her shoulder blades. Patient with no additional complaints. Specifically denies chest pain at present, no SOB, palpitations, nausea, vomiting, GRIFFIN, visual disturbances, numbness/tingling/weakness or back pain. Patient has not taken any OTC cold medications or NSAIDS, no recent EtOH use. In the ER she is afebrile, hypertensive ER Course: Nitroglycerine paste x 2in Evening medications ordered: Lisinopril 20mg and Metoprolol 50mg - not yet given Allergies Allergy/AdvReac Type Severity Reaction Status Date / Time Sulfa (Sulfonamide Allergy Mild Abdominal Unverified 07/15/24 20:18 Antibiotics) Pain Home Medications Medication Instructions Recorded Confirmed Type lisinopril 20 mg tablet 20 mg PO BID 06/28/24 07/15/24 History aspirin 81 mg tablet,delayed 81 mg PO DAILY #0 tabs 06/30/24 07/15/24 Rx release atorvastatin 40 mg tablet 40 mg PO QAM #3 tabs 06/30/24 07/15/24 Rx isosorbide mononitrate 30 mg 30 mg PO QAM #30 tabs 06/30/24 07/15/24 Rx tablet,extended release 24 hr nitroglycerin 0.4 mg sublingual 0.4 mg sublingual Q5M PRN chest 06/30/24 07/15/24 Rx tablet (Nitrostat) pain #25 tabs amlodipine 2.5 mg tablet 2.5 mg PO DAILY 07/15/24 07/15/24 History biotin 1 mg capsule 1 mg PO DAILY 07/15/24 07/15/24 History calcium 100 mg capsule 100 mg PO DAILY 07/15/24 07/15/24 History cholecalciferol (vitamin D3) 10 10 mcg PO DAILY 07/15/24 07/15/24 History mcg (400 unit) capsule (Vitamin D3) coQ10 (ubiquinol) 100 mg capsule 100 mg PO DAILY 07/15/24 07/15/24 History methylphenidate HCl 10 mg tablet 10 mg PO DAILY 07/15/24 07/15/24 History methylphenidate HCl 36 mg 36 mg PO DAILY 07/15/24 07/15/24 History tablet,extended release 24 hr metoprolol succinate 50 mg 50 mg PO QPM 07/15/24 07/15/24 History tablet,extended release 24 hr omega-3 fatty acids 1,000 mg PO DAILY 07/15/24 07/15/24 History vitamin B complex 1 cap PO DAILY 07/15/24 07/15/24 History Past Med/Surg History Problem List (Updated 07/15/24 @ 20:03 by Kathie Kaiser DO) Elevated troponin (Acute) Medical History (Updated 07/15/24 @ 20:03 by Kathie Kaiser DO) CAD (coronary artery disease) Catheterization 07/01/[address] Fortune - severe multivessel CAD with significant calcification Lung nodule Acute non-ST elevation myocardial infarction (NSTEMI) Hypertensive urgency Social History Smoking Status: Never smoker Hx Alcohol Use: Yes Hx Substance Use: No Preferred Language: [place] Communication Ability: Effective Slip Box Changer Required: No Beliefs That Will Affect Care: None Current Living Situation: Alone Feels Safe at Home: Yes Assistive Devices: None Review of Systems Review of Systems: All systems reviewed & are unremarkable except as noted in HPI & below Physical Exam Physical Exam: General: patient resting comfortably, NAD, non-toxic in appearance, AA&O x 4 Skin: warm, dry, intact, no rashes or lesions HEENT: NC/AT, PERRL, EOMI, anicteric sclera, conjunctiva without injection, external ear normal to inspection and nontender, nares patent, moist mucus membranes, dentition intact, no oropharyngeal lesions, neck supple, trachea midline, no LAD, no thyromegaly, no JVD Heart: +S1/S2, regular, no m/r/g Lungs: equal air entry bilaterally, no rales/rhonchi/wheezes Abd: +BS, soft, NT/ND, no masses/organomegaly/ascites Ext: warm, 2+ pulses in UE/LE bilaterally, no clubbing/cyanosis or edema Neuro: nonfocal, patient AA&O x 4, speech intact, no facial droop, moving all extremities on command with equal strength 5/5 Results & Data Results & Data Vital Signs (Past 12 Hours) Vital Signs Temp Pulse Resp BP Pulse Ox O2 Del Method O2 Flow Rate 07/15/24 18:05 95 Room Air 07/15/24 18:05 95 Room Air 0 07/15/24 18:00 56 L 07/15/24 17:38 36.4 C L 56 L 18 249/92 H 93 Room Air Laboratory Results Laboratory Results WBC 5.31 K/ul (4.8-10.8) 07/15/24 18:03 RBC 4.06 M/uL (4.20-5.40) L 07/15/24 18:03 Hgb 12.4 g/dl (12.0-16.0) 07/15/24 18:03 Hct 36.9 % (37.0-47.0) L 07/15/24 18:03 MCV 90.9 fL (80.0-100.0) 07/15/24 18:03 MCH 30.5 pg (25.0-34.0) 07/15/24 18: MCHC 33.6 g/dL (32.0-36.0) 07/15/24 18:03 RDW Std Deviation 41.7 fL (36.4-46.3) 07/15/24 18:03 RDW Coeff of Deirdre 12.6 % (11.5-14.5) 07/15/24 18:03 Plt Count 227 K/uL (130-400) 07/15/24 18:03 MPV 9.8 fL (9.4-12.4) 07/15/24 18:03 Immature Gran % (Auto) 0.2 % 07/15/24 18:03 Neut % (Auto) 68.2 % 07/15/24 18:03 Lymph % (Auto) 21.1 % 07/15/24 18:03 [place] % (Auto) 5.6 % 07/15/24 18:03 Eos % (Auto) 4.3 % 07/15/24 18:03 Baso % (Auto) 0.6 % 07/15/24 18:03 Neut # (Auto) 3.62 K/uL (1.40-6.50) 07/15/24 18:03 Lymph # (Auto) 1.12 K/uL (1.20-3.40) L 07/15/24 18:03 [place] # (Auto) 0.30 K/uL (0.11-0.59) 07/15/24 18:03 Eos # (Auto) 0.23 K/uL (0.00-0.50) 07/15/24 18:03 Baso # (Auto) 0.03 K/uL (0.00-0.20) 07/15/24 18:03 Immature Gran # (Auto) 0.01 K/uL (0.01-0.20) 07/15/24 18:03 PT 10.3 Seconds (9.0-12.0) 07/15/24 18:03 INR 0.9 (0.9-1.1) 07/15/24 18:03 APTT 24 Seconds (21-31) 07/15/24 18:03 PTT Ratio 0.9 07/15/24 18:03 Sodium 139 mmol/L (136-145) 07/15/24 18:03 Potassium 3.9 mmol/L (3.5-5.1) 07/15/24 18:03 Chloride 104 mmol/L (98-107) 07/15/24 18:03 Carbon Dioxide 30 mmol/L (21-32) 07/15/24 18:03 Anion Gap 5 (3-11) 07/15/24 18:03 BUN 18 mg/dl (6-23) 07/15/24 18:03 Creatinine 0.80 mg/dl (0.6-1.2) 07/15/24 18:03 Est Cr Clr Drug Dosing 53.6 ml/min 07/15/24 18:03 eGFR 74.90 07/15/24 18:03 BUN/Creatinine Ratio 22.5 (10-20) H 07/15/24 18:03 Glucose 117 mg/dl (70-99(Fasting)) H 07/15/24 18:03 Calcium 9.2 mg/dl (8.6-10.3) 07/15/24 18:03 Magnesium 1.9 mg/dl (1.7-2.4) 07/15/24 18:03 Total Bilirubin 0.3 mg/dl (0.2-1.0) 07/15/24 18:03 AST 14 U/L (13-39) 07/15/24 18:03 ALT 11 U/L (7-52) 07/15/24 18:03 Alkaline Phosphatase 87 U/L (34-104) 07/15/24 18:03 Troponin I High Sens 13.6 pg/ml (0-14) 07/15/24 18:03 Total Protein 6.1 gm/dl (6.0-8.3) 07/15/24 18:03 Albumin 3.5 gm/dl (3.4-5.0) 07/15/24 18:03 Globulin 2.6 gm/dl (2.5-4.0) 07/15/24 18:03 Albumin/Globulin Ratio 1.3 (0.9-2) 07/15/24 18:03 Lipase 71 U/L (11-82) 07/15/24 18:03 Impressions Chest X-Ray 07/15/24 18:05 Chest radiograph, one view History: Chest pain Comparison: 06/28/2024 Findings: Single AP view of the chest performed. No focal consolidation or pleural effusion. No pneumothorax. The cardiomediastinal silhouette is within normal limits. Normal pulmonary vascularity. No evidence for lymphadenopathy. No visualized bony or soft tissue abnormality. Impression: Normal chest radiograph Electronically signed by Michel Garcia 07-15-2024 6:21 PM ECG Additional Comments: Per my interpretation EKG with sinus bradycardia with sinus arrhythmia, 58bpm, normal axis, XG=232, QRS=86, FIa=384, no acute ischemic changes PG Care Time/CCT Total # of Minutes Spent Total Time Spent with Patient: Total time spent is greater than 50% in coordination of care (as documented) at patient's floor/unit and/or counseling patient: Coding Level of Care Code 87712 INT INP/OBS CARE 3/75MIN Diagnoses Hypertensive urgency I16.0 CAD (coronary artery disease) I25.10 Coronary Disease-Associated Artery/Lesion type: [place] artery [place] vs. transplanted heart: [place] heart (2) CAD (coronary artery disease) Coronary Disease-Associated Artery/Lesion type: [place] artery [place] vs. transplanted heart: [place] heart
[2024-07-15] MEDS: METOPROLOL SUCC 50MG EXT REL TAB PO STA (20:14)
[2024-07-15] MEDS: lisinopril 20 MG TAB PO STA (20:15)
[2024-07-15] MEDS ORDERED: ONDANSETRON INJ 2 MG/ML 2 ML VIAL IV PRN (21:01)
[2024-07-15] MEDS ORDERED: ACETAMINOPHEN 325 MG TAB PO PRN (21:01)
[2024-07-15] MEDS: hydrALAZINE 10 MG TAB PO PRN (23:24)
[2024-07-16] MEDS: lisinopril 20 MG TAB PO SCH (08:32)
[2024-07-16] MEDS: ISOSORBIDE MONO EXTENDED REL 60 MG TABCR PO SCH (08:32)
[2024-07-16] MEDS: amLODIPine BESYLATE 5 MG TAB PO SCH ×2 (08:33→18:12)
[2024-07-16] MEDS: ASPIRIN 81 MG ECTAB PO SCH (08:33)
[2024-07-16] MEDS: ATORVASTATIN 40 MG TAB PO SCH (08:33)
--- NOTE | 2024-07-16 10:18 | Electrocardiogram Report ---
Test Reason : Blood Pressure : */* mmHG Vent. Rate : 58 BPM Atrial Rate : 58 BPM P-R Int : 134 ms QRS Dur : 86 ms QT Int : 412 ms P-R-T Axes : 56 71 55 degrees QTcB Int : 404 ms Sinus bradycardia with occasional Premature atrial complexes Otherwise normal ECG When compared with ECG of 28-Jun-2024 13:52, QT has shortened Confirmed by Jerry Fuller ([id number]) on 07/16/2024 10:17:30 AM Referred By: REFERRED SELF Confirmed By: Jerry Fuller
--- NOTE | 2024-07-16 13:31 | Cardiology Consultation ---
Date of Consultation July 16, 2024 Assessment & Plan (1) Unstable angina: (2) Accelerated hypertension: (3) Familial hypercholesterolemia: Chol 324 mg/dL 03/11/2024 13:23 EDT LDL Chol, Calculated 218 mg/dL 03/11/2024 13:23 EDT HDL 76 mg/dL 03/11/2024 13:23 EDT Non-HDL 248 mg/dL 03/11/2024 13:23 EDT Chol/HDL 4 03/11/2024 13:23 EDT TG 152 mg/dL 03/11/2024 13:23 EDT she was just started on statin on 06/28-she may require PCSK9 inhibitor as well. (4) Sinus bradycardia: Plan Her troponin this admission remains normal. Cont ASA, BB, CCB and nitrates. Add IV heparin as well. Recommend transfer to [place] for more urgent surgical treatment given her recurrent symptoms. History of Present Illness Reason for Consultation: eval angina Attending Physician: Maribell Washington MD History of Present Illness Kathie Blanco is a 78 year old Female who was admitted to the hospital last night with chest discomfort and unstable angina. She had labile blood pressures yesterday and associated this was some chest discomfort which radiated through to her back. She did take sublingual nitroglycerin at home and when she got to the ER was again given additional nitrates. Her EKG appeared normal. I would mention however that her EKG in the setting of her having the non-STEMI back in June also looked normal. Her cardiac enzymes at this time are unremarkable. She has been having intermittent back pain which feels similar to her pain from the [place] last month. As you know, she was admitted 06/28/24 with NSTEMI. I saw her on Friday07/12/24 for evaluation of surgical coronary disease after her hospitalization June 28, 2024. She had been having chest pain for days before she actually presented. She describes her chest pain as an elephant sitting on her chest and it radiated through to her back. She was not sure if this was coming from the lungs apparently did not cross her mind that this could even be a heart condition. When she presented however she had EKG changes as well as a positive troponin. She went to the Vascular Nurse shortly after arriving and was found to have three-vessel coronary disease. We discussed her CAD and I am recommending that she have a surgical consultation in [place]. She was not started on DAPT at the time, but was started on ASA, BB, isosorbide and statin. I would mention that she disclosed to me that she is taking Ritalin for ADHD. We discussed that in this setting this medication is contraindicated. I asked her to start weaning off this med AMANDA. She has not been very active since [place]. In the past,She was fairly active with friends and family with hiking traveling etc. Years ago, she was diagnosed with asthma and SOB. 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 She required surgical intervention for this severe clot. In addition, she underwent cardiac cath back in 2011 ( I do not have this report), this was at [facility]-she tells me she had no significant CAD at the time. I would mention that she was previously on statin for very high lipids, but stopped this years ago. She was involved with a clinical trial using the DASH diet at [place]. I am reluctant to send her home due to the recurrent symptoms. She is agreeable to transfer to [place]. I will review with Dr. Chisholm. and the cardiology team contract loader. She remains on the maximal tolerated dose of BB her HR is in the low 50s, we increased her nitrates, and I would consider starting IV heparin as well. I also started her on low dose amlodipine on Friday due to HTN. Allergies Allergy/AdvReac Type Severity Reaction Status Date / Time Sulfa (Sulfonamide Allergy Mild Abdominal Unverified 07/15/24 20:18 Antibiotics) Pain Home Medications Medication Instructions Recorded Confirmed Type lisinopril 20 mg tablet 20 mg PO BID 06/28/24 07/15/24 History aspirin 81 mg tablet,delayed 81 mg PO DAILY #0 tabs 06/30/24 07/15/24 Rx release atorvastatin 40 mg tablet 40 mg PO QAM #3 tabs 06/30/24 07/15/24 Rx isosorbide mononitrate 30 mg 30 mg PO QAM #30 tabs 06/30/24 07/15/24 Rx tablet,extended release 24 hr nitroglycerin 0.4 mg sublingual 0.4 mg sublingual Q5M PRN chest 06/30/24 07/15/24 Rx tablet (Nitrostat) pain #25 tabs amlodipine 2.5 mg tablet 2.5 mg PO DAILY 07/15/24 07/15/24 History biotin 1 mg capsule 1 mg PO DAILY 07/15/24 07/15/24 History calcium 100 mg capsule 100 mg PO DAILY 07/15/24 07/15/24 History cholecalciferol (vitamin D3) 10 10 mcg PO DAILY 07/15/24 07/15/24 History mcg (400 unit) capsule (Vitamin D3) coQ10 (ubiquinol) 100 mg capsule 100 mg PO DAILY 07/15/24 07/15/24 History methylphenidate HCl 10 mg tablet 10 mg PO DAILY 07/15/24 07/15/24 History methylphenidate HCl 36 mg 36 mg PO DAILY 07/15/24 07/15/24 History tablet,extended release 24 hr metoprolol succinate 50 mg 50 mg PO QPM 07/15/24 07/15/24 History tablet,extended release 24 hr omega-3 fatty acids 1,000 mg PO DAILY 07/15/24 07/15/24 History vitamin B complex 1 cap PO DAILY 07/15/24 07/15/24 History Patient History Medical History CAD (coronary artery disease) Catheterization 07/01/[address] Fortune - severe multivessel CAD with significant calcification Lung nodule Acute non-ST elevation myocardial infarction (NSTEMI) Hypertensive urgency Social History Smoking Status: Never smoker Hx Alcohol Use: Yes Hx Substance Use: No Preferred Language: Albanian Communication Ability: Effective Diabetes Educator Required: No Beliefs That Will Affect Care: None Current Living Situation: Alone Feels Safe at Home: Yes Assistive Devices: None Review of Systems Review of Systems: All systems reviewed & are unremarkable except as noted in HPI & below Physical Exam Physical Exam: AAO x 3 in no distress; she is currently pain free Respiratory: normal respiratory effort, lungs clear to auscultation Cardiovascular: heart regular +S4 VANE at base c/w aortic sclerosis. Results & Data Vital Signs (Past 12 Hours) Vital Signs Temp Pulse Pulse Resp BP Pulse Ox O2 Del Method 07/16/24 10:39 36.9 C 50 L 17 143/70 H 93 Room Air 07/16/24 07:35 51 L 11/15/24 07:20 36.6 C 49 L 18 145/73 H 93 Room Air 07/16/24 02:26 36.7 C 60 16 151/68 H 92 Room Air Laboratory Results Abnormal lab results 07/15/24 Range/Units 18:03 RBC 4.06 L (4.20-5.40) M/uL Hct 36.9 L (37.0-47.0) % Lymph # (Auto) 1.12 L (1.20-3.40) K/uL BUN/Creatinine Ratio 22.5 H (10-20) Glucose 117 H (70-99(Fasting)) mg/dl Diagnostic Findings Cardiac Cath 06/28/24: [id number] vessel trifurcating into LAD, ramus, and circumflex. Distally up to 20% stenosis. LAD-proximal diffuse disease with maximum stenosis 80%. Mid vessel with diffuse calcific disease up to 90% stenosed. Early distal vessel has diffuse disease and 50 to 70% stenosis. There is a medium to large caliber branching first diagonal with ostial 99% stenosis and proximal 50 to 70% stenosis. The more distal LAD and apical LAD have mild luminal irregularities. Ramus-this is very large and branching. There is a long eccentric proximal stenosis of 90 to 95%. Moderate calcification in the proximal segment. LCx-medium caliber and nondominant. Proximal 40 to 50% long stenosis. [id number] and dominant vessel. Proximally there is a shelf like lesion which narrows up to 99% and is calcified. The mid vessel also has calcification and diffuse mild disease less than 50% stenosis. Distally there is a focal stenosis of 80% occurring before the bifurcation. The vessel bifurcates into a large PDA and a large branching right posterolateral these vessels do not appear to have any significant disease. ECHO done 06/28/24: LVEF 60-65% moderate LVH diastolic dysfunction no significant valve abnormalities Medications Administered Current Inpatient Medications Acetaminophen (Acetaminophen 325 Mg Tab) 650 mg PO Q4H PRN PRN Reason: Pain or Fever Stop: 08/14/24 21:00 Amlodipine Besylate (Amlodipine Besylate 5 Mg Tab) 2.5 mg PO DAILY [facility] Stop: 08/15/24 08:59 Last Admin: 07/16/24 08:33 Dose: 2.5 mg Aspirin (Aspirin 81 Mg Ectab) 81 mg PO DAILY [facility] Stop: 08/15/24 08:59 Last Admin: 07/16/24 08:33 Dose: 81 mg Atorvastatin Calcium (Atorvastatin 40 Mg Tab) 40 mg PO QAM [facility] Stop: 08/15/24 08:59 Last Admin: 07/16/24 08:33 Dose: 40 mg Hydralazine HCl (Hydralazine 10 Mg Tab) 10 mg PO TID PRN PRN Reason: BP > 160/90 Stop: 08/15/24 08:59 Last Admin: 07/15/24 23:24 Dose: 10 mg Isosorbide Mononitrate (Isosorbide [place] Extended Rel 60 Mg Tabcr) 60 mg PO QAM [facility] Stop: 08/15/24 08:59 Last Admin: 07/16/24 08:32 Dose: 60 mg Lisinopril (Lisinopril 20 Mg Tab) 20 mg PO BID [facility] Stop: 08/15/24 08:59 Last Admin: 07/16/24 08:32 Dose: 20 mg Metoprolol Succinate (Metoprolol Succ 50mg Ext Rel Tab) 50 mg PO QPM [facility] Stop: 08/15/24 20:59 Ondansetron HCl (Ondansetron Inj 2 Mg/Ml 2 Ml Vial) 4 mg IV Q6H PRN PRN Reason: Nausea Stop: 08/14/24 21:00
--- OUTSIDE RECORDS SUMMARY | 2024-07-16 13:46 | External Medical Summary | Continuity of Care Document ---
Author Name Unknown Organization [place] [address] [facility] Address [address], [place] [id number] Care Team Providers Care Reclamation Worker Name Role Phone Alec Guru Kristi Layne Primary Care P carmen [phone] [id number] Date(s): 07/12/24 - 07/12/24 [facility] [address], [address] [place] [address] [place] [phone] Discharge Disposition: Home or Self Care Attending Physician: DO Florian Michelle L Referring Physician: DO Florian Michelle L Allergies, Adverse Reactions, Alerts Substance Criticality Severity [...] 2Result Comment: 2021-07-17: Historical information-source unspecified Medications amLODIPine 2.5 mg oral tablet Start: 07/12/24 6:09:00 PM EST, 1 tab, PO, Daily, Disp# 90 tab, Refills: 3, Pharmacy: [facility]/pharmacy #[id number] Start Date: 07/12/24 Status: Ordered aspirin 81 mg oral delayed release tablet Start: 07/12/24 9:01:00 AM EST, 1 tab, PO, Daily Start Date: 07/12/24 Status: Ordered atorvastatin 40 mg oral tablet Start: 07/12/24 10:39:00 AM EST, 1 tab, PO, Daily, Disp# 90 tab, Refills: 3, Pharmacy: [facility]/pharmacy#[id number] Start Date: 07/12/24 Status: Ordered cannabidiol Start: 06/06/23 11:20:00 AM EDT Start Date: 06/06/23 Status: Ordered Co-Q10 100 mg oral capsule Start: 07/17/21 2:17:00 PM EST, 1 cap, PO, Daily Start Date: 07/17/21 Status: Ordered diclofenac 1% topical gel Start: 04/23/24 5:44:00 PM EDT, 1 appl, topical, qid, Disp# 100 g, Refills: 5, PRN: Pain, Pharmacy: [facility]/pharmacy #[id number] Start Date: 04/23/24 Status: Ordered Echinacea [...] PO, Daily Start Date: 07/17/21 Status: Ordered isosorbide mononitrate 30 mg oral tablet, extended release Start: 07/12/24 10:39:00 AM EST, 1 tab, PO, qPM, Disp# 90 tab, Refills: 3, Pharmacy: [facility]/pharmacy #[id number] Start Date: 07/12/24 Status: Ordered Flora-42 topical cream Start: 07/17/21 2:08:00 PM EST Start Date: 07/17/21 Status: Ordered lisinopril 20 mg oral tablet Start: 07/12/24 10:41:00 AM EST, 1 tab, PO, bid, Disp# 180 tab, Refills: 3, [id number] Start Date: 07/12/24 Status: Ordered methylphenidate 10 mg oral tablet Start: 07/12/24 9:04:00 AM EST, 1 tab, PO, Daily, Refills: 0 Start Date: 07/12/24 Status: Ordered Metoprolol Succinate ER 50 mg oral tablet, extended release Start: 07/12/24 10:40:00 AM EST, 1 tab, PO, Daily, Disp# 90 tab, Refills: 3, Pharmacy: [facility]/pharmacy#[id number] Start Date: 07/12/24 Status: Ordered montelukast 10 mg oral tablet Start: 03/17/23 9:53:00 AM EDT, See Instructions, Disp# 90 tab, Refills: 3, TAKE 1 TABLET BY MOUTH EVERY DAY, [id number] Start Date: 03/17/23 Status: Ordered nitroglycerin 0.4 mg sublingual tablet Start: 07/01/24 8:37:00 AM EDT, 1 tab, SL, q5min, If chest pain not relieved in 5 minutes after first dose, seek immediate medical attention, PRN: chest pain Start Date: 07/01/24 Status: Ordered Osteo Bi-Flex Triple Strength Start: 07/17/21 2:11:00 PM EST, 1 tab, PO, bid Start Date: 07/17/21 Status: Ordered ProAir HFA 90 mcg/inh inhalation [...] extraction 1 Completed 1all her teeth Results Radiology Reports * Exam Date Time Procedure Performing Provider Status 07/12/24 1:01 PM VL Lower Ext Venous Duplex Bilateral Phillip Christina; Final Notes: (VL Lower Ext Venous Duplex Bilateral) Reason For Exam: hx DVT remote VL Lower Ext Venous Duplex Bilateral [facility] FINAL REPORT Name: PER RUEDA : 1945 Visit: [id number] Date: 12 Jul 2024 TYPE OF TEST: Peripheral Venous Testing REASON FOR TEST Hx of thrombectomy in left iliac/femoral veins (in her 20s) INTERPRETATION/FINDINGS Venous duplex imaging performed of the bilateral lower extremities: 1. No evidence of deep or superficial vein thrombosis identified in the bilateral common femoral, deep femoral, femoral, popliteal, gastrocnemius, posterior tibial, peroneal, great saphenous or small saphenous veins. No prior studies for comparison. IMPRESSION/COMMENTS I have personally reviewed the data relevant to the interpretation of this study. TECHNOLOGIST: Christina MAX, [facility], RVT PHYSICIAN: Henri Garcia M.D. Signed: 07/12/2024 04:10 PM Final Dictated by:MD Garcia Eugene J Dictated DT/TM:07/12/2024 4:10 Signed by:MD Garcia Eugene J Signed (Electronic Signature):07/12/2024 4:10 p Transcribed by:FAVIAN * Exam Date Time Procedure Performing Provider Status 07/12/24 1:02 PM VL Carotid Duplex Bilateral Roselyn Fisher; Final Notes: (VL Carotid Duplex Bilateral) Reason For Exam: pre CABG VL Carotid Duplex Bilateral [facility] FINAL REPORT Name: PER RUEDA : 1945 Visit: [id number] Date: 12 Jul 2024 TYPE OF TEST: Cerebrovascular Duplex REASON FOR TEST Pre-Op CABG INTERPRETATION/FINDINGS Duplex imaging performed of the bilateral extracranial arteries: 1. No arterial disease in the bilateral internal or external carotid arteries. 2. Normal, antegrade flow in the bilateral vertebral arteries. 3. Normal flow in the innominate and bilateral proximal subclavian arteries. No prior studies for comparison. IMPRESSION/COMMENTS I have personally reviewed the data relevant to the interpretation of this study. TECHNOLOGIST: Christina MAX, RD, RVT PHYSICIAN: Henri Garcia M.D. Signed: 07/12/2024 04:09 PM Final Dictated by:MD Garcia Eugene J Dictated DT/TM:07/12/2024 4:10 Signed by:MD Garcia Eugene J Signed (Electronic Signature):07/12/2024 4:09 p Transcribed by:FAVIAN * Exam Date Time Procedure Performing Provider Status 07/12/24 1:02 PM VL Vein Mapping Lower Extremity Preop Christina Fisher; Final Notes: (VL Vein Mapping Lower Extremity Preop) Reason For Exam: pre op cabg VL Vein Mapping Lower Extremity Preop [facility] FINAL REPORT Name: PER RUEDA : 1945 Visit: [id number] Date: 12 Jul 2024 TYPE OF TEST: Peripheral Venous Testing REASON FOR TEST Pre-Op CABG INTERPRETATION/FINDINGS Superficial vein mapping performed of the bilateral lower extremities: RIGHT LE. The right great saphenous vein may be adequate conduit for coronary bypass in the thigh, measuring 3.8 mm - 4.0 mm. The right GSV in the calf/at the knee is inadequate size conduit for coronary bypass - measuring 1.2 mm - 1.5 mm. 2. The right small saphenous vein in an inadequate conduit for coronary bypass, measuring 0.7 mm at the smallest diameter. LEFT LE. The left great saphenous vein may be adequate conduit for coronary bypass from the knee to the upper thigh, measuring 2.1 mm - 3.5 mm. The right GSV in the calf is an inadequate conduit for coronary bypass - measuring 0.9 mm - 1.8 mm. 2. The left small saphenous vein in an inadequate conduit for coronary bypass, measuring 1.6 mm at the smallest diameter. No prior exam available for comparison. IMPRESSION/COMMENTS I have personally reviewed the data relevant to the interpretation of this study. TECHNOLOGIST: Christina MAX, RDCS, RVT PHYSICIAN: Henri Garcia M.D. Signed: 07/12/2024 04:09 PM Final Dictated by:MD Garcia Eugene J Dictated DT/TM:07/12/2024 4:09 Signed by:MD Garcia Eugene J Signed (Electronic Signature):07/12/2024 4:09 p Transcribed by:VANS Social History Social History Type Response Smoking Status Never smoked cigaret beto Sex Sex Representation Female (finding) Patient Care team information Care Team Personnel Name: Alec Garvey DO, Mariana Annette Position: Physician - Family Med Member Role: Primary Care Provider Address: [address] [place] [id number] [place]
--- OUTSIDE RECORDS SUMMARY | 2024-07-16 13:46 | External Medical Summary | Continuity of Care Document ---
Author Name Unknown Organization [address] Address [address] [place] [phone] Care Team Providers Care Detective Bowling Alley Name Role Phone Kristi Mars [facility] [phone] Encounter [facility] [id number] Date(s): 07/02/24 - 07/02/[address], [facility] [address] [place] [address] [phone] Encounter Diagnosis Hospitalization within last 30 days(Discharge Diagnosis) - 07/02/24 NSTEMI (non-ST elevated myocardial infarction)(Discharge Diagnosis) - 07/02/24 Lung nodules(Discharge Diagnosis) - 07/02/24 Discharge Disposition: Home or Self Care Attending Physician: Alec Garvey DO, Mariana Annette Referring Physician: Alec Garvey DO, Mariana Annette Allergies, Adverse Reactions, Alerts Substance Criticality Severity Reaction Reaction Severity Status sulfa drugs Unable to assess criticality Mild Nausea Active Assessment and Plan Extracted from: Title:Office Visit Note Author:Alec Garvey DO, Mariana Annette Date:07/02/24 1.Hospitalization within l ast 30 days Initial transitional care contact documentation reviewed and was made on 07/01/24. Medical Decision Making:highly complex (seen within 7 days of discharge) ([address]) Medication Reconciliation:medication list reconciled and given to patient/family/caregiver at discharge Referrals: cardiology Community Resources identified for patient/family:None Durable Medical Equipment:No qualifying data available. Additional Communication Delivered or Planned to:None Needed Patient Education Handouts Given: Patient Education Topics Discussed: _ 2.NSTEMI (non-ST elevated myocardial infarction) Advised to take all her new medications as prescribed including aspirin. She requests a referral to [facility] cardiology as she has many questions and does not want to wait until August for her apointment. Will discontinue methylphenidate and premarin cream. 3.Lung nodules Will repeat CT lung in 12 months. Immunizations Given and Recorded Vaccine Date Status [...] 2Result Comment: 2021-07-17: Historical information-source unspecified Medications atorvastatin 40 mg oral tablet Start: 07/01/24 8:37:00 AM EDT Start Date: 07/01/24 Status: Ordered cannabidiol Start: 06/06/23 11:20:00 AM EDT Start Date: 06/06/23 Status: Ordered Co-Q10 100 mg oral capsule Start: 07/17/21 2:17:00 PM EST, 1 cap, PO, Daily Start Date: 07/17/21 Status: Ordered diclofenac 1% topical gel Start: 04/23/24 5:44:00 PM EDT, 1 appl, topical, qid, Disp# 100 g, Refills: 5, PRN: Pain, Pharmacy: [facility]/pharmacy #[id number] Start Date: 04/23/24 Status: Ordered Echinacea oral [...] 30 mg oral tablet, extended release Start: 07/01/24 8:37:00 AM EDT Start Date: 07/01/24 Status: Ordered Flora-42 topical cream Start: 07/17/21 2:08:00 PM EST Start Date: 07/17/21 Status: Ordered lisinopril 20 mg oral tablet Start: 09/11/23 5:24:00 PM EST, 2 tab, PO, Daily, Disp# 180 tab, Refills: 3, Pharmacy: [facility]/pharmacy #[id number] Start Date: 09/11/23 Status: Ordered Metoprolol Succinate ER 50 mg oral tablet, extended release Start: 07/01/24 8:37:00 AM EDT Start Date: 07/01/24 Status: Ordered montelukast 10 mg oral tablet Start: 03/17/23 9:53:00 AM EDT, See Instructions, Disp# 90 tab, Refills: 3, TAKE 1 TABLET BY MOUTH EVERY DAY, Pharmacy: [facility]/pharmacy #[id number] Start Date: 03/17/23 Status: Ordered nitroglycerin 0.4 mg sublingual tablet Start: 07/01/24 8:37:00 AM EDT Start Date: 07/01/24 Status: Ordered Osteo Bi-Flex [...] Start Date: 07/17/21 Status: Ordered Mental Status 11/1/24 Barriers to Learning one year None evide nt Mandatory Health Literacy Documentation Yes Health Literacy Communication Barriers N ever Primary Language Georgian Problem List Condition Confirmation Course Effective Dates [...] Effective Dates Health Status Clinical Service Informant NSTEMI (non-ST elevated myocardial infarction) Discharge Diagnosis 07/02/24 Non-Specified Hospitalization within last 30 days Discharge Diagnosis 07/02/24 Non-Specified Lung nodules Discharge Diagnosis 07/02/24 Non-Specified Procedures Procedure Date Related Diagnosis Body Site Status Simple dental extraction 1 Completed 1all her teeth Vital Signs Most recent to oldest [Reference Range]: 1 Patient Weight 66.7 kg (07/02/24 2:14 PM) Temperature [36.5-37.9 DegC] 36.6 DegC (07/02/24 2:14 PM) Blood Pressure 152/84mmHg (07/02/24 2:14 PM) Cuff Pulse Pressure 68 mmHg (07/02/24 2:14 PM) Social History Social History Type Response Smoking Status Never smoked cigaret beto Sex Sex Representation Female (finding) Transitional Care Note * Alec Garvey DO, Mariana Annette: PERFORM Event Display: Transitional Care Note Authored Date: [id number] Chief Complaint F/U [facility] hosp. Had NV. Will discuss concerns. Declines flu inj today. History of Present Illness Patient was admitted to [facility] - 06/30/24 due to NSTEMI, hypertensive emergency. She presented with dyspnea on exertion, chest pain, found to have elevated troponins. 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 She has a cardiology f/u 08/19/24 (Dr. Fortune). She has a lot of questions and would like to see cardiology sooner than August. Has not been taking aspirin as she is fearful of epistaxis. She had an incidental finding of small lung nodules, all <6mm. According to Fleischner criteria, can be followed in [address] scan. Physical Exam Vitals & Measurements T:36.6C BP:152/84 SpO2:96% WT:66.700kg(Dosing) WT:66.7kg PHQ2 Data(Data Documented on:07/02/2024 14:13) Emotional health assessment NEGATIVE General: _Alert and oriented, No acute distress Cardiovascular: _Normal rate, Regular rhythm, No murmur, No gallop. Respiratory: _Lungs are clear to auscultation, Respirations are non-labored, Breath sounds are equal Psych: Mood-affect congruence. Speech is of normal pace and content Assessment/Plan 1.Hospitalization within last 30 days Initial transitional care contact documentation reviewed and was made on 07/01/24. Medical Decision Making:highly complex (seen within 7 days of discharge) (24142) Medication Reconciliation:medication list reconciled and given to patient/family/caregiver at discharge Referrals: cardiology Community Resources identified for patient/family:None Durable Medical Equipment:No qualifying data available. Additional Communication Delivered or Planned to:None Needed Patient Education Handouts Given: Patient Education Topics Discussed: _ 2.NSTEMI (non-ST elevated myocardial infarction) Advised to take all her new medications as prescribed including aspirin. She requests a referral to [facility] cardiology as she has many questions and does not want to wait untilDecember for her apointment. Will discontinue methylphenidate and premarin cream. 3.Lung nodules Will repeat CT lung in 12 months. Problem List/Past Medical History Ongoing ADD (attention deficit disorder) ADHD Adhesive capsulitis of left shoulder Asthma Controlled substance agreement signed Family history of pancreatic cancer History of DVT in adulthood History of hyperlipidemia HTN (hypertension) Pelvic floor dysfunction Procedure/Surgical History Simple dental extraction Medications albuterol(ProAir HFA 90 mcg/inh inhalation aerosol), 2 puff, inhaled, qid, PRN atorvastatin(atorvastatin 40 mg oral tablet) biotin(Hair, Skin & Nails), 1 tab, PO, Daily cannabidiol cholecalciferol(Vitamin D3 2000 intl units (50 mcg) oral tablet), 50 mcg= 1 tab, PO, Daily chondroitin-glucosamine(Osteo Bi-Flex Triple Strength), 1 tab, PO, bid diclofenac topical(diclofenac 1% topical gel), 1 appl, topical, qid, PRN, 5 refills echinacea(Echinacea oral tablet), 1 tab, PO, Daily, PRN isosorbide mononitrate(isosorbide mononitrate 30 mg oral tablet, extended release) lisinopril(lisinopril 20 mg oral tablet), 40 mg= 2 tab, PO, Daily, 3 refills metoprolol(Metoprolol Succinate ER 50 mg oral tablet, extended release) montelukast(montelukast 10 mg oral tablet), See Instructions, 3 refills multivitamin(Vitamin B Complex), 1 tab, PO, Daily nitroglycerin(nitroglycerin 0.4 mg sublingual tablet) omega-3 polyunsaturated fatty acids(Fish Oil 1200 mg [...] 06/01/2016 Recorded pneumococcal 13-valent vaccine 06/26/2015 Recorded zoster vaccine, inactivated 05/13/2012 Recorded Recommendations Health Maintenance Pending(in the next year) OverDue Adult Influenza Vaccine due02/29/24and every 1year Due Adult Social Determinants of Health Screening due04/25/24and every 366day Adult COVID-19 Vaccination due07/02/24Unknown Frequency Medicare Annual Wellness Visit due07/02/24and every 1year Shingles Vaccine due07/02/24One-time only Satisfied(in the past 1 year) Satisfied Body Mass Index on03/18/24.Satisfied by MARTÍNEZ Trammell Lori Lipid Screening on03/11/24.Satisfied by [employer] Osteoporosis Screening on12/11/23.Satisfied by SHOSHANA Salter, Keely Electronic Signature on File Electronically Reviewed/Signed by: Kristi Garvey DO Author Signature Dt/Tm:07/02/2024 03:03 PM Department of Family Medicine [facility] Patient Care team information Care Team Personnel Name: Alec Garvey DO, Mariana Annette Position: Physician - Family Med Member Role: Primary Care Provider Address: [address] [place] [address] [place]
--- OUTSIDE RECORDS SUMMARY | 2024-07-16 13:46 | External Medical Summary | Continuity of Care Document ---
Author Name Unknown Organization [facility] Address [address] [place] [phone] Care Team Providers Care Merchandise Deliverer Name Role Phone Kristi Mars Primary Care justintracey [phone] Encounter [facility] BRITTANYROBR [id number] Date(s): 07/12/24 - 07/12/24 [facility] [address], [address] [place] [address] [place] [phone] Encounter Diagnosis SOB (shortness of breath)(Discharge Diagnosis) - 07/12/24 NSTEMI (non-ST elevated myocardial infarction)(Discharge Diagnosis) - 07/12/24 CAD (coronary artery disease)(Discharge Diagnosis) - 07/12/24 Hypercholesteremia(Discharge Diagnosis) - 07/12/24 Hypertension(Discharge Diagnosis) - 07/12/24 May-Thurner syndrome(Discharge Diagnosis) - 07/14/24 History of deep vein thrombosis (DVT) of lower extremity(Discharge Diagnosis) - 07/14/24 Discharge Disposition: Home or Self Care Attending Physician: DO Florian Michelle L Referring Physician: Alec Garvey DO, Mariana Annette Allergies, Adverse Reactions, Alerts Substance Criticality Severity Reaction Reaction Severity Status sulfa drugs Unable to assess criticality Mild Nausea Active Assessment and Plan Extracted from: Title:Cardiology Office Visit Note Author:DO Florian Michelle L Date:07/12/24 1.NSTEMI (non-ST elevated myocardial infarction) 2.CAD (coronary artery disease) 3.Hypercholesteremia 4.Hypertension 5.May-Thurner syndrome 6.History of deep vein thrombosis (DVT) of lower extremity cont current medications for now. She is to limited strenuous activity at this time. The above lipids were this summer off statin. She has been started on statin 2 weeks ago as an inpatient. She was advised to wean off ritalinASAP. Refer to CT surgery. We did carotids and LE venous mapping today in anticipation of CABG. I will follow up with her after her surgical eval.I would mention, that she would like eval for staged interventions. She will discuss that option with CT surgery. Given the severity of her disease, this would not be the preferred option. Thank you for allowing me to participate in the care of this very nice woman. I will follow up with her after her appt in[place]. Debbie Holloway [facility] [employer] Teacherinternal combustion engine assembler [facility] Immunizations Given and Recorded Vaccine Date Status [...] Daily, Disp# 90 tab, Refills: 3, Pharmacy: [facility]/pharmacy #[id number] Start Date: 07/12/24 Status: Ordered aspirin 81 mg oral delayed release tablet Start: 07/12/24 9:01:00 AM EST, 1 tab, PO, Daily Start Date: 07/12/24 Status: Ordered atorvastatin 40 mg oral tablet Start: 07/12/24 10:39:00 AM EST, 1 tab, PO, Daily, Disp# 90 tab, Refills: 3, Pharmacy: [facility]/pharmacy#[id number] Start Date: 07/12/24 Status: Ordered cannabidiol Start: 06/06/23 11:20:00 AM EDT Start Date: 06/06/23 Status: Ordered Co-Q10 100 mg oral capsule Start: 07/17/21 2:17:00 PM EST, 1 cap, PO, Daily Start Date: 07/17/21 Status: Ordered diclofenac 1% topical gel Start: 04/23/24 5:44:00 PM EDT, 1 appl, topical, qid, Disp# 100 g, Refills: 5, PRN: Pain, Pharmacy: [facility]/pharmacy #[id number] Start Date: 04/23/24 Status: Ordered [...] qPM, Disp# 90 tab, Refills: 3, Pharmacy: [facility]/pharmacy #[id number] Start Date: 07/12/24 Status: Ordered Flora-42 topical cream Start: 07/17/21 2:08:00 PM EST Start Date: 07/17/21 Status: Ordered lisinopril 20 mg oral tablet Start: 07/12/24 10:41:00 AM EST, 1 tab, PO, bid, Disp# 180 tab, Refills: 3, Pharmacy: [facility]/pharmacy #[id number] Start Date: 07/12/24 Status: Ordered methylphenidate 10 mg oral tablet Start: 07/12/24 9:04:00 AM EST, 1 tab, PO, Daily, Refills: 0 Start Date: 07/12/24 Status: Ordered Metoprolol Succinate ER 50 mg oral tablet, extended release Start: 07/12/24 10:40:00 AM EST, 1 tab, PO, Daily, Disp# 90 tab, Refills: 3, Pharmacy: [facility]/pharmacy#[id number] Start Date: 07/12/24 Status: Ordered montelukast 10 mg oral tablet Start: 03/17/23 9:53:00 AM EDT, See Instructions, Disp# 90 tab, Refills: 3, TAKE 1 TABLET BY MOUTH EVERY DAY, Pharmacy: [facility]/pharmacy #[id number] Start Date: 03/17/23 Status: Ordered nitroglycerin [...] Start Date: 07/17/21 Status: Ordered Mental Status 07/12/24 Barriers to Learning one year None evide nt Mandatory Health Literacy Documentation Yes Health Literacy Communication Barriers N ever Primary Language Arabic Problem List Condition Confirmation Course Effective Dates [...] Effective Dates Health Status Clinical Service Informant SOB (shortness of breath) Discharge Diagnosis 07/12/24 Non-Specified CAD (coronary artery disease) Discharge Diagnosis 07/12/24 Non-Specified Hypercholesteremia Discharge Diagnosis 07/12/24 Non-Specified Hypertension Discharge Diagnosis 07/12/24 Non-Specified NSTEMI (non-ST elevated myocardial infarction) Discharge Diagnosis 07/12/24 Non-Specified History of deep vein thrombosis (DVT) of lower extremity Discharge Diagnosis 07/14/24 Non-Specified May-Thurner syndrome Discharge Diagnosis 07/14/24 Non-Specified Procedures Procedure Date Related Diagnosis Body Site Status Simple dental extraction 1 Completed 1all her teeth Vital Signs Most recent to oldest [Reference Range]: 1 Patient Weight 70.1 kg (07/12/24 9:05 AM) Heart Rate 70 bpm (07/12/24 9:05 AM) Blood Pressure 148/90mmHg (07/12/24 9:05 AM) Cuff Pulse Pressure 58 mmHg (07/12/24 9:05 AM) Social History Social History Type Response Smoking Status Never smoked cigaret beto Sex Sex Representation Female (finding) EKG study * Contributor_system, MUSE01: VERIFY, PERFORM Event Display: EKG Authored Date: Please click on link to see image. Cardiology Outpatient Note * DO Florian Michelle L: PERFORM Event Display: Cardiology Outpt Note Authored Date: Primary Care Provider Alec Garvey DO, Mariana Annette Referring Provider Alec Garvey DO, Mariana Annette Reason for Consultation s/p NSTEMI 3 vessel CAD 06/28/24 Chief Complaint pt was admitted to [facility] with cp, had heart cath. History of Present Illness No Saldivar is here for evaluation ofsurgical coronarydiseaseafter her hospitalization June 28, 2024. She had been having chest pain for days before she actually presented. She describes her chest pain as an elephant sitting on her chestand it radiated through to her back. She was not sure if this was coming from the lungsapparently didnot cross her mind that this could even be a heart condition. When she presented lynda hadEKG changes as well asa positive troponin. She went to the Cath Labshortly after arriving andwas found to have three-vesselcoronary disease. We discussed her CAD and I am recommending thatrufus have a surgical consultation in [place]. She was not started on DAPT at the time, but was started on ASA, BB, isosorbide and statin. I would mention that she disclosed to me that she is taking Ritalin for ADHD. We discussed that in this setting this medication is contraindicated. I asked her to start weaning off this med AMANDA. Currently, she has not had angina on medications. She has not been very active since [place]. In [facility],She was fairly active with friends and family with hiking traveling etc. Years ago, she was diagnosed with asthma and SOB. She has an interesting history of developing a Left DVT and suspected May- Huynh Syndrome at age20 after being on BCP. She required surgical intervention for this severe clot. In addition,she underwent cardiac cath back in 2011 ( I do not have this report), this was at [facility]-she tells me she had no significant CAD at the time. I would mention that she was previously on statin for very high lipids, but stopped this years ago. She was involved with a clinical trial using the DASH diet at [place]. Review of Systems All other systems reviewed and negative except as discussed in the HPI Physical Exam Vitals & Measurements HR:70(Monitored) BP:148/90 SpO2:98% WT:70.100kg(Dosing) WT:70.1kg Patient is awake alert and oriented x3and in no acute distress HEENT:2+ carotid upstrokes, no evidence of carotid bruits LUNGS:Clear to auscultation bilaterally no rales rhonchi or wheezing HEART:Regular rate and rhythmno appreciable murmurs rubs or gallops ABDOMEN:Soft nontender nondistended positive bowel sounds EXTREMITIES:No evidence of clubbing cyanosis or edema PSYCHIATRIC:Patients affect appeared appropriate EKG NSR, ECG normal without acute changes Assessment/Plan 1.NSTEMI (non-ST elevated myocardial infarction) 2.CAD (coronary artery disease) 3.Hypercholesteremia 4.Hypertension 5.May-Thurner syndrome 6.History of deep vein thrombosis (DVT) of lower extremity cont current medications for now. She is to limited strenuous activity at this time. The above lipids were this summer off statin. She has been started on statin 2 weeks ago as an inpatient. She was advised to wean off ritalinASAP. Refer to CT surgery. We did carotids and LE venous mapping today in anticipation of CABG. I will follow up with her after her surgical eval.I wouldmention, that she would like eval for staged interventions. She will discuss that option with CT surgery. Given the severity of her disease, this would not be the preferred option. Thank you for allowing me to participate in the care of this very nice woman. I will follow up with her after [place] appt [place]. 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 2011 [place]-told no significant CAD Severe Familial Hypercholesterolemia-was previously on statin but DC > 10 years ago in favor of DASH diet NSTEMI 06/28/24-[facility] with surgical CAD ECHO overall EF normal 06/28/24-no significant VHD carotid dopplers 07/12/24-no significant disease LE venous dopplers-no DVT; vein mapping 07/12/24 Medications albuterol(ProAir HFA 90 mcg/inh inhalation aerosol), 2 puff, inhaled, qid, PRN amLODIPine(amLODIPine 2.5 mg oral tablet), 2.5 mg= 1 tab, PO, Daily, 3 refills aspirin(aspirin 81 mg oral delayed release tablet), 81 mg= 1 tab, PO, Daily atorvastatin(atorvastatin 40 mg oral tablet), 40 mg= 1 tab, PO, Daily, 3 refills biotin(Hair, Skin & Nails), 1 tab, PO, Daily cannabidiol cholecalciferol(Vitamin D3 2000 intl units (50 mcg) oral tablet), 50 mcg= 1 tab, PO, Daily chondroitin-glucosamine(Osteo Bi-Flex Triple Strength), 1 tab, PO, bid diclofenac topical(diclofenac 1% topical gel), 1 appl, topical, qid, PRN, 5 refills echinacea(Echinacea oral tablet), 1 tab, PO, Daily, PRN isosorbide mononitrate(isosorbide mononitrate 30 mg oral tablet, extended release), 30 mg= 1 tab, PO, qPM, 3 refills lisinopril(lisinopril 20 mg oral tablet), 20 mg= 1 tab, PO, bid, 3 refills methylphenidate(methylphenidate 10 mg oral tablet), 10 mg= 1 tab, PO, Daily metoprolol(Metoprolol Succinate ER 50 mg oral tablet, extended release), 50 mg= 1 tab, PO, Daily, 3refills montelukast(montelukast 10 mg oral tablet), See Instructions, 3 refills multivitamin(Vitamin B Complex), 1 tab, PO, Daily nitroglycerin(nitroglycerin 0.4 mg sublingual tablet), 0.4 mg= 1 tab, SL, q5min, PRN omega-3 polyunsaturated fatty acids(Fish Oil 1200 mg [...] Relationship: Brother, Age: Unknown, Cause: Pancreatic cancer Lab Results Test Name Test Result Date/Time Na 140 mmol/L 03/11/2024 13:23 EDT K 3.8 mmol/L 03/11/2024 13:23 EDT Cl- 106 mmol/L 03/11/2024 13:23 EDT HCO3 32 mmol/L 03/11/2024 13:23 EDT Anion Gap 2 mmol/L 03/11/2024 13:23 EDT BUN 17 mg/dL 03/11/2024 13:23 EDT Cret 0.76 mg/dL 03/11/2024 13:23 EDT eGFR CKD-EPI 80 mL/min/1.73 m2 03/11/2024 13:23 EDT Glu 102 mg/dL 03/11/2024 13:23 EDT Ca 9.1 mg/dL 03/11/2024 13:23 EDT ALT 17 unit/L 03/11/2024 13:23 EDT T Bili 0.8 mg/dL 03/11/2024 13:23 EDT Alk Phos 92 unit/L 03/11/2024 13:23 EDT AST 37 unit/L 03/11/2024 13:23 EDT Alb 3.7 g/dL 03/11/2024 13:23 EDT Prot 7.2 g/dL 03/11/2024 13:23 EDT Vitamin D, 25-Hydroxy 35 ng/mL 03/11/2024 13:23 EDT Chol 324 mg/dL 03/11/2024 13:23 EDT LDL Chol, Calculated 218 mg/dL 03/11/2024 13:23 EDT HDL 76 mg/dL 03/11/2024 13:23 EDT Non-HDL 248 mg/dL 03/11/2024 13:23 EDT Chol/HDL 4 03/11/2024 13:23 EDT TG 152 mg/dL 03/11/2024 13:23 EDT Electronic Signature on File CC: Kristi Garvey DO [address] [place] [id number] CC: Ranjeet Chisholm MD [address] [place] [id number] Electronically Reviewed/Signed by: Debbie Florian DO Author Signature Dt/Tm:07/14/2024 06:00 PM Division of General Cardiology [facility] Patient Care team information Care Team Personnel Name: Alec Garvey DO, Mariana Annette Position: Physician - Family Med Member Role: Primary Care Provider Address: [address] [place] [id number] [place]
--- NOTE | 2024-07-16 13:53 | Hospitalist Progress Note ---
Date of Service July 16, 2024 Assessment & Plan (1) Hypertension: (2) History of OR (myocardial infarction): (3) Sinus bradycardia: Plan #Hypertensive urgency: Markedly elevated SBP at ED > 200 After Admission: 143-151/68-73 Lisinopril,Metoprolol and nitrate 2% - administered in the ER Continue Amlodipine 2.5mg PO daily, recently started bt cardiology. Isosorbide mononitrate increased to 60 mg. Methyphenidate on hold #Bradycardia Asymptomatic; ECG: Sinus Winston with occ PAC. Under Metoprolol 50mg po qPM as per cardio Cardio consult requested #CAD (coronary artery disease): Severe multi-vessel CAD(diagnosed on 07/01/24) No chest pain, SOB, lightheadedness now; ECG: No Ischemia; Troponin WNL Cardiology apt at [facility] on 07/20/24. -Continue ASA 81mg po daily, Lipitor 40 and other med as above Plan Diet: Low Na diet Ppx - Low risk for DVT Full Code Admission and Anticipated Discharge Date Admission Date: July 15, 2024 Supervising Physician Co-Signing Physician Notes Attending Physician Supervision Note: I independently interviewed and examined the patient and verified the marroquin history and physical, reviewed labs and image studies and agree with findings and care plan noted above. Mid-scapular pain improved this morning but recurred later on. no other concerns. alert, RRR, CTA Angina in setting of recent NSTEMI due to severe multivessel CAD - was set up for CABG eval. Considering recurring symptoms - transfer to [facility] has been set up. Accepting physician Dr. Shade Ohara. -Imdur dose increased to 30mgs to 60mgs. -continue metoprolol 50mgs. HR running in 40-50s. monitor and consider cutting dose to 25mgs -statin, aspirin, lisinopril Hypertensive urgency - increase amlodipine to 10mgs. -holding stimulant. Heparin SQ Subjective 78yo female with history of HTN, severe multi-vessel CAD noted on recent catheterization 07/01/24 admitted after presenting to ED with elevated blood pressure and pain in between two shoulder blade. She mentions she was seeing her PCP and Cardiology back an forth last week, and there was change in timing and dose of medicine, she thinks its because of that her Blood pressure is fluctuating. She measures pressure regularly at home. She does not endorse symptoms like headache, SOB, Chest pain, passing out, LOC. She met Dr. 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 They are not sure about stenting vs CABG she says. She never had heart attack before in past apart from non ST elevation OR she has recently, when her CAD was diagnosed. Results & Data Results & Data Vital Signs (Past 12 Hours) Vital Signs Temp Pulse Pulse Resp BP Pulse Ox O2 Del Method 07/16/24 10:39 36.9 C 50 L 17 143/70 H 93 Room Air 07/16/24 07:35 51 L 07/16/24 07:20 36.6 C 49 L 18 145/73 H 93 Room Air 07/16/24 02:26 36.7 C 60 16 151/68 H 92 Room Air Resident Activity Tracking Resident Involvement: Resident Care Provided Care Provided: Adult Hospital Medicine (1) Hypertension Hypertension type: unspecified Qualified Code(s): I10 - Essential (primary) hypertension
[2024-07-16] MEDS: HEPARIN SOD 5,000 UNIT/0.5 ML VIAL SQ SCH (20:27)
[2024-07-16] MEDS: METOPROLOL SUCC 50MG EXT REL TAB PO SCH (20:42)
[2024-07-17 02:43] VITALS: TEMP 97.9
[2024-07-17 06:50] LABS: Basophils # (auto) 0.02 K/uL (0.00-0.20); Basophils % (auto) 0.4 %; Eosinophils # (auto) 0.28 K/uL (0.00-0.50); Hematocrit (blood only) 37.4 % (37.0-47.0); Hemoglobin 12.7 g/dl (12.0-16.0); Immature Granulocytes # (auto) 0.02 K/uL (0.01-0.20); Immature Granulocytes % (auto) 0.4 %; Lymphocytes # (auto) 1.85 K/uL (1.20-3.40); Lymphocytes % (auto) 33.3 %; Mean Corpuscular Hemoglobin 30.9 pg (25.0-34.0); Monocytes # (auto) 0.36 K/uL (0.11-0.59); Monocytes % (auto) 6.5 %; Neutrophils # (auto) 3.03 K/uL (1.40-6.50); Neutrophils % (auto) 54.4 %; Platelet Count 221 K/uL (130-400); RDW Coefficient of Variation 12.4 % (11.5-14.5); RDW Standard Deviation 40.8 fL (36.4-46.3); Red Blood Count 4.11 M/uL (4.20-5.40); White Blood Count 5.56 K/ul (4.8-10.8)
[2024-07-17 07:31] VITALS: BP 197/74; PULSE 51; RESP 18; O2SAT 96
--- NOTE | 2024-07-17 11:40 | Discharge Summary ---
Date of Service July 16, 2024 Admission HPI Per Admitting Provider Kathie Blanco is a pleasant 78yo female presenting with hypertension and chest discomfort. Patient was recently admitted to [facility] from 06/28 - 06/30 after presenting with SOB and chest pain. Found to have NSTEMI. Patient had a cardiac catheterization performed which revealed triple-vessel coronary artery disease. No stents were placed. Patient was discharged home in stable condition on 06/30/24. She has been following with Dr. Florian of Cardiology. They are coordinating with [facility] for patient to have CABG performed. She has her initial consult appointment scheduled for 07/20/24. Patient presents with hypertension. Patient's blood pressure was high last night in the 170's so she took one Nitro tablet with improvement in blood pressure to the 150's. She was recently seen by Cardiology and had some medications changed. Patient filled her prescriptions today and started her new medication regimen this morning. She took her Amlodipine 2.5mg, Lisinopril 20mg and Isosorbide 30mg this AM. Her blood pressure, however has been quite high. She has been watching it at home and it was in the upper 160-170s. Additionally she had some occasional back discomfort between her shoulder blades. Patient with no additional complaints. Specifically denies chest pain at present, no SOB, palpitations, nausea, vomiting, GRIFFIN, visual disturbances, numbness/tingling/weakness or back pain. Patient has not taken any OTC cold medications or NSAIDS, no recent EtOH use. In the ER she is afebrile, hypertensive ER Course: Nitroglycerine paste x 2in Evening medications ordered: Lisinopril 20mg and Metoprolol 50mg - not yet given Admission Exam Per Admitting Provider General: patient resting comfortably, NAD, non-toxic in appearance, AA&O x 4 Skin: warm, dry, intact, no rashes or lesions HEENT: NC/AT, PERRL, EOMI, anicteric sclera, conjunctiva without injection, external ear normal to inspection and nontender, nares patent, moist mucus membranes, dentition intact, no oropharyngeal lesions, neck supple, trachea midline, no LAD, no thyromegaly, no JVD Heart: +S1/S2, regular, no m/r/g Lungs: equal air entry bilaterally, no rales/rhonchi/wheezes Abd: +BS, soft, NT/ND, no masses/organomegaly/ascites Ext: warm, 2+ pulses in UE/LE bilaterally, no clubbing/cyanosis or edema Neuro: nonfocal, patient AA&O x 4, speech intact, no facial droop, moving all extremities on command with equal strength 5/5 Principal Diagnosis Hypertensive urgency Severe mutivessel CAD Discharge Exam Physical Exam: AAO x 3 in no distress; she is currently pain free Respiratory: normal respiratory effort, lungs clear to auscultation Cardiovascular: heart regular +S4 VANE at base c/w aortic sclerosis. Discharge Data Allergies Allergy/AdvReac Type Severity Reaction Status Date / Time Sulfa (Sulfonamide Allergy Mild Abdominal Unverified 07/15/24 20:18 Antibiotics) Pain Consultations 07/15/24 19:08 ED Decision to Admit Stat 07/16/24 12:04 Consult Cardiology Routine Hospital Course (1) Hypertension: (2) History of IL (myocardial infarction): (3) Sinus bradycardia: Plan #Hypertensive urgency: Markedly elevated SBP at ED > 200 After Admission: 143-151/68-73 Lisinopril 20 mg BID,Metoprolol 50 mg QPM continued Amlodipine 2.5mg increased to 10 mg PO daily Isosorbide mononitrate increased to 60 mg. #Bradycardia Asymptomatic; ECG: Sinus Winston with occ PAC. HR: 40-50 #CAD (coronary artery disease): Severe multi-vessel CAD(diagnosed on 07/01/24) No chest pain, SOB, lightheadedness now; ECG: No Ischemia; Troponin WNL on admission Atypical scapular pain, reoccurred on admission. Cardiology on board: Recommends to transfer to [place] for immediate surgical evaluation for CABG 07/17/2024: Patient transferred to [place]. Total Time Total Time Spent Total Time Spent (In Minutes): See attending's attestation Discharge Plan Discharge Items Patient Disposition: Transfer Acute Care Hospital Reason For Visit: HYPERTENSIVE URGENCY Discharge Diagnosis: Hypertensive Urgency Multiple vessel CAD Anginal pain Condition on Discharge: Fair Activity: Resume your previous activity Non-emergency contact: Primary Care Provider Call non-emergency contact if: your pain is concerning for you Follow-up/Referrals: Kristi Mars DO [Primary Care Provider] - Diet: Heart Healthy Addtl Attending Provider Instructions: #Hypertensive urgency: Markedly elevated SBP at ED > 200 After Admission: 143-151/68-73 Lisinopril,Metoprolol and nitrate 2% - administered in the ER Amlodipine increased to 10 mg PO daily, per cardiology. Isosorbide mononitrate increased to 60 mg. Methylphenidate on hold #Bradycardia Asymptomatic; ECG: Sinus Winston with occ. PAC. HR: 40-50/min #CAD (coronary artery disease): Severe multi-vessel CAD(diagnosed on 07/01/24) Endorses Atypical pain in between her shoulder ECG: No Ischemia; Troponin WNL Transfer to [place] for evaluation of CABG -Continue ASA 81mg PO daily, Lipitor 40 and other med as above. Pending Studies at Discharge: No Stand-Alone Forms: My [facility] [employer] Skilled Items Patient informed of condition?: Yes DNR: No Discharge Level of Care: Other Communicable Disease: No Discharge Prognosis: Stable Lines: None Urinary Catheter: No Medications and DC Order Prescriptions: New hydralazine 10 mg Tablet 10 mg PO TID PRN (Reason: hypertension) 10 Days Qty: 30 0RF amlodipine [Norvasc] 5 mg Tablet 10 mg PO DAILY 10 Days Qty: 20 0RF isosorbide mononitrate 60 mg Tablet Extended Release 24 Hr 60 mg PO QAM 10 Days Qty: 10 0RF Continued lisinopril 20 mg tablet 20 mg PO BID atorvastatin 40 mg Tablet 40 mg PO QAM Qty: 3 0RF aspirin 81 mg Tablet,Delayed Release (Dr/Ec) 81 mg PO DAILY Qty: 0 0RF nitroglycerin [Nitrostat] 0.4 mg Tablet, Sublingual 0.4 mg sublingual Q5M PRN (Reason: chest pain) Qty: 25 0RF metoprolol succinate 50 mg tablet extended release 24 hr 50 mg PO QPM methylphenidate HCl 10 mg tablet 10 mg PO DAILY vitamin B complex Capsule 1 cap PO DAILY calcium 100 mg Capsule 100 mg PO DAILY cholecalciferol (vitamin D3) [Vitamin D3] 10 mcg (400 unit) Capsule 10 mcg PO DAILY omega-3 fatty acids Capsule 1,000 mg PO DAILY coQ10 (ubiquinol) 100 mg Capsule 100 mg PO DAILY biotin 1 mg Capsule 1 mg PO DAILY methylphenidate HCl 36 mg tablet extended release 24hr 36 mg PO DAILY Discontinued isosorbide mononitrate 30 mg Tablet Extended Release 24 Hr 30 mg PO QAM Qty: 30 0RF amlodipine 2.5 mg tablet 2.5 mg PO DAILY Discharge Orders: Discharge Order (Routine); Ordered 07/16/24 Ordered By: Maribell Washington Admission Data Admit Date/Time: 07/15/24 19:41 Attending Provider: Maribell Washington Admit Provider: Kathie Kaiser Primary Care Provider: Kristi Mars Other Providers: Kathie Kaiser; Debbie Florian Other Interventions: Discharge Summary Assessment (RN) Last Done: 07/16/24 19:12 Supervising Physician Co-Signing Physician Notes Not seen on the day of discharge since transportation was arranged early in the morning. Angina in setting of recent NSTEMI due to severe multivessel CAD - was set up for CABG eval. Considering recurring symptoms - [place] [facility] [place]. Accepting physician Dr. Shade Ohara. -Imdur dose increased to 30mgs to 60mgs. -continued metoprolol 50mgs. HR running in 40-50s. -statin, aspirin, lisinopril Hypertensive urgency - increased amlodipine to 10mgs. -held stimulant. Received Heparin SQ for DVT proph. Resident Activity Tracking Resident Involvement: Resident Care Provided Care Provided: Adult Hospital Medicine
== END 2024-07-17 08:26 | disposition short-term general hospital (02) | DRG 282 ==
LOC: ED 17:36 → 2S 19:41 → SUATTDRO 19:41 → 2S 20:22